=== PATIENT | female | born 1985 | race Caucasian/White ===

== ENCOUNTER → 2019-04-24 | Outpatient (CLI) | payer MEDICARE, MEDICAID, SELFPAY | PROVIDERS: Family Provider Nurse Practitioner Family; PCP Nurse Practitioner Family; Visit Provider Audiologist | DX: H90.11 Conductive hearing loss, unilateral, right ear, with unrestricted hearing on the contralateral side (principal) | CPT/HCPCS: 92557; 92567 ==

== ENCOUNTER → 2019-05-20 11:38 | Outpatient (BNVA) | payer MEDICARE, MEDICAID, SELFPAY | PROVIDERS: Family Provider Nurse Practitioner Family; PCP Nurse Practitioner Family; Visit Provider Nurse Practitioner Family | DX: N18.9 Chronic kidney disease, unspecified (principal) | CPT/HCPCS: 80069; 82044; 85025 ==

== ENCOUNTER → 2019-06-16 12:37 | Outpatient (BNVA) | payer MEDICARE, MEDICAID, SELFPAY | PROVIDERS: Family Provider Nurse Practitioner Family; PCP Nurse Practitioner Family; Referring Provider Nurse Practitioner Family; Visit Provider Otolaryngology | DX: H93.91 Unspecified disorder of right ear (principal); H90.11 Conductive hearing loss, unilateral, right ear, with unrestricted hearing on the contralateral side | CPT/HCPCS: 99213; 99214 ==

== ENCOUNTER → 2019-08-25 11:30 | Outpatient (BNVA) | payer MEDICARE, MEDICAID, SELFPAY | PROVIDERS: Family Provider Nurse Practitioner Family; PCP Nurse Practitioner Family; Visit Provider Nurse Practitioner Family | DX: D52.9 Folate deficiency anemia, unspecified (principal); N18.9 Chronic kidney disease, unspecified; Z79.899 Other long term (current) drug therapy; E55.9 Vitamin D deficiency, unspecified; E53.8 Deficiency of other specified B group vitamins; E78.2 Mixed hyperlipidemia; R53.83 Other fatigue | CPT/HCPCS: 80053; 80061; 81001; 82306; 82607; 82746; 84443 ==

== ENCOUNTER 2019-10-01 13:41 | Outpatient (CLI) | payer MEDICARE, MEDICAID, SELFPAY ==
--- NOTE | 2019-10-01 14:14 | PFTS_ITS ---
Date of Study:10/01/19 Date of Dictation: MECHANICS: Forced vital capacity (FVC) is reduced. Forced expiratory volume in one second (FEV1) is reduced. FEV1/FVC is normal. FLOW VOLUME LOOP: Narrow. LUNG VOLUMES: Not performed DIFFUSING CAPACITY FOR CARBON MONOXIDE: Not performed INTERPRETATION: Spirometry is consistent with mild restriction MTDD
== END 2019-10-01 13:42 | disposition home or self-care (01) ==
LOC: RT 13:42
PROVIDERS: Family Provider Nurse Practitioner Family; PCP Nurse Practitioner Family; Visit Provider Internal Medicine Critical Care Medicine
DX: R05 Cough (principal)
CPT/HCPCS: 94010

== ENCOUNTER → 2019-10-21 11:27 | Outpatient (BNVA) | payer MEDICARE, MEDICAID, SELFPAY | PROVIDERS: Family Provider Nurse Practitioner Family; PCP Nurse Practitioner Family; Visit Provider Nurse Practitioner Family | DX: N18.9 Chronic kidney disease, unspecified (principal); D64.9 Anemia, unspecified | CPT/HCPCS: 80053; 81001; 83540; 85025 ==

== ENCOUNTER → 2019-10-23 10:22 | Outpatient (BNVA) | payer MEDICARE, MEDICAID, SELFPAY | PROVIDERS: Family Provider Nurse Practitioner Family; PCP Nurse Practitioner Family; Visit Provider Nurse Practitioner Family | DX: R73.9 Hyperglycemia, unspecified (principal) | CPT/HCPCS: 83036 ==

== ENCOUNTER 2019-12-15 10:35 | Outpatient (CLI) | payer MEDICARE, MEDICAID, SELFPAY ==
--- NOTE | 2019-12-15 11:00 | USCV_ITS ---
Treasure Ward Age: 34 Gender: F : 1985 Exam Date: 12/15/2019 10:54 Ordering Phys: LISA Borja APRN Technologist: John Suggs Exam Location: [facility] [place] Indication: HISTORY: Edema. Swelling. PROCEDURES: Bilateral duplex Venous Insufficiency study of the Deep and Superficial systems was carried out according to normal protocol with the patient in supine positon for deep system and dependent position for the superficial system. FINDINGS: All deep veins demonstrated compressibility without evidence of intraluminal thrombus or increased echogenicity. Spectral analysis of Doppler signals demonstrates normal response to compression maneuvers indicating patency without obstruction. Reflux determinations were made with the patient in the dependent position, the weight being on the contralateral leg. Vein measurements and reflux times are listed below were applicable. THERE IS SIGNIFICANT REFLUX IN BOTH GSAPH AND LESSER GSAPH BOTH LEG LEG S ARE GOOD CANIDATES FOR ABLATION CONCLUSIONS 1. Significant venous reflux was noted in the common femoral, femoral and popliteal vein on the left side, of greater than 1000 ms. Significant venous reflux of greater than 500 ms were noted throughout the greater saphenous vein segments on the left side including the saphenofemoral junction. The small saphenous vein was found to have significant reflux of greater than 500 ms at the mid segment on the left side. The venous segments were greater than 0.5 cm in diameter and the more than a centimeter deep from the surface 2. On the right side, no significant venous reflux was noted in the deep veins. Significant venous reflux of greater than 500 ms were noted at the distal and below-knee greater saphenous vein segments and in the small saphenous vein segments. The venous dimensions where ranging 0.37 to 0.64 cm in diameter. The segments were greater than 1 cm deep from the surface Dr Alexi French MD [facility] (Electronically Signed) Final Date: 15 December 2019 20:02 S
== END 2019-12-15 10:36 | disposition home or self-care (01) ==
LOC: US 10:36
PROVIDERS: PCP Nurse Practitioner Family; Visit Provider Nurse Practitioner Family
DX: I83.93 Asymptomatic varicose veins of bilateral lower extremities (principal)
CPT/HCPCS: 93970

== ENCOUNTER → 2019-12-22 11:35 | Outpatient (BNVA) | payer MEDICARE, MEDICAID, SELFPAY | PROVIDERS: PCP Nurse Practitioner Family; Visit Provider Nurse Practitioner Family | DX: B88.9 Infestation, unspecified (principal); N18.9 Chronic kidney disease, unspecified | CPT/HCPCS: 80069; 82043; 85025 ==

== ENCOUNTER → 2020-09-01 07:58 | Outpatient (BNVA) | payer MEDICARE, MEDICAID, SELFPAY | PROVIDERS: PCP Nurse Practitioner Family; Visit Provider Dermatology | DX: R21 Rash and other nonspecific skin eruption (principal) | CPT/HCPCS: 87220 ==

== ENCOUNTER 2020-09-01 09:12 | Outpatient (CLI) | payer MEDICARE, MEDICAID, SELFPAY ==
--- NOTE | 2020-09-01 09:29 | XR_ITS ---
WS: [id number] Skull series, 4 views, 09/01/2020 Clinical Data: POST TRAUMATIC SEIZURE DISORDER/INTRACTABLE MIGRAINE Comparison: CT head, 01/10/2017. Findings: The patient has had a left frontal parietal craniotomy. No fractures are seen. There are no abnormal intracranial calcifications. The sella turcica is normal. The mandible and maxilla show no abnormalit ies. The sinuses show no air-fluid levels or mucoperiosteal thickening. XR/XR skull min 4V* [id number] Impression: Left frontoparietal craniotomy.
== END 2020-09-01 09:13 | disposition home or self-care (01) ==
LOC: RAD 09:23
PROVIDERS: PCP Nurse Practitioner Family; Visit Provider Psychiatry & Neurology Neurology
DX: R56.1 Post traumatic seizures (principal); G43.019 Migraine without aura, intractable, without status migrainosus
CPT/HCPCS: 70260

== ENCOUNTER → 2020-09-28 11:14 | Outpatient (BNVA) | payer MEDICARE, MEDICAID, SELFPAY | PROVIDERS: PCP Nurse Practitioner Family; Visit Provider Nurse Practitioner Family | DX: D64.9 Anemia, unspecified (principal); N18.9 Chronic kidney disease, unspecified; E78.2 Mixed hyperlipidemia; E55.9 Vitamin D deficiency, unspecified; I10 Essential (primary) hypertension; Z79.899 Other long term (current) drug therapy; N63.10 Unspecified lump in the right breast, unspecified quadrant | CPT/HCPCS: 80053; 80061; 81003; 82306; 82607; 82728; 83036; 83550; 84443; 85025 ==

== ENCOUNTER → 2020-10-04 15:33 | Outpatient (BNVA) | payer MEDICARE, MEDICAID, SELFPAY | PROVIDERS: PCP Nurse Practitioner Family; Visit Provider Podiatrist Foot & Ankle Surgery | DX: M19.072 Primary osteoarthritis, left ankle and foot (principal); M25.572 Pain in left ankle and joints of left foot | CPT/HCPCS: 73610 ==

== ENCOUNTER 2020-10-14 11:07 | Outpatient (CLI) | payer MEDICARE, MEDICAID, SELFPAY ==
--- NOTE | 2020-10-14 11:14 | US_ITS ---
WS: [id number] BILATERAL DIGITAL DIAGNOSTIC MAMMOGRAM MAMMOGRAPHY WITH CAD CLINICAL INFORMATION: N63.10 - Unspecified lump in the right breast, unspecifie... COMPARISON: None. TECHNIQUE: Bilateral CC, MLO, and ML views. FINDINGS: Fatty replaced breasts bilaterally. Palpable marker right breast. No underlying mammographic abnormal ities. Ultrasound is pending. Bilateral intramammary lymph nodes. No suspicious findings left breast. ULTRASOUND BREAST RIGHT TECHNIQUE: Ultrasound right breast focused area of concern. CLINICAL INFORMATION: N63.10 - Unspecified lump in the right breast, unspecifie... COMPARISON: None. FINDINGS: Ultrasound right breast at the 1:00 position 6 cm from the nipple. Normal underlying parenchymal tiss ue. No cystic or solid lesions. No suspicious findings. US/US breast RT limited* [id number] IMPRESSION: BI-RADS: 2-Benign FOLLOW UP: Age 40 Recommend annual screening mammography age 40
--- NOTE | 2020-10-14 11:30 | MM_ITS ---
WS: [id number] BILATERAL DIGITAL DIAGNOSTIC MAMMOGRAM MAMMOGRAPHY WITH CAD CLINICAL INFORMATION: N63.10 - Unspecified lump in the right breast, unspecifie... COMPARISON: None. TECHNIQUE: Bilateral CC, MLO, and ML views. FINDINGS: Fatty replaced breasts bilaterally. Palpable marker right breast. No underlying mammographic abnormal ities. Ultrasound is pending. Bilateral intramammary lymph nodes. No suspicious findings left breast. ULTRASOUND BREAST RIGHT TECHNIQUE: Ultrasound right breast focused area of concern. CLINICAL INFORMATION: N63.10 - Unspecified lump in the right breast, unspecifie... COMPARISON: None. FINDINGS: Ultrasound right breast at the 1:00 position 6 cm from the nipple. Normal underlying parenchymal tiss ue. No cystic or solid lesions. No suspicious findings. MM/[place] [id number] IMPRESSION: BI-RADS: 2-Benign FOLLOW UP: Age 40 Recommend annual screening mammography age 40
== END 2020-10-14 11:08 | disposition home or self-care (01) ==
LOC: RADSHAW 11:10
PROVIDERS: PCP Nurse Practitioner Family; Visit Provider Nurse Practitioner Family
DX: N63.12 Unspecified lump in the right breast, upper inner quadrant (principal)
CPT/HCPCS: 76642; 77066

== ENCOUNTER 2020-12-27 09:37 | Outpatient (CLI) | payer MEDICARE, MEDICAID, SELFPAY ==
--- NOTE | 2020-12-27 09:48 | CT_ITS ---
WS: [id number] CT TEMPORAL BONES TECHNIQUE: Noncontrast CT of the temporal bones with coronal and sagittal reformatted images. CLINICAL INFORMATION: INFECTIVE OTITIS EXTERNA RT EAR, CONDUCTIVE HEARING LOSS, RT COMPARISON: None. DLP: 660.[address] scans at [facility] use at least one of these dose optimization techniques: automat ed exposure control; mA and/or kV adjustment per patient size (includes targeted exams where dose is matched to clinical indication); or iterative reconstruction. FINDINGS: Mastoid air cells are well aerated bilaterally. External auditory canals are patent bilater ally. Nasal sinuses are well aerated. Mild mucosal thickening ethmoid air cells. Normal parapharyngea l fat. No evidence of drainable abscess or fluid collection. RIGHT: Mastoid air cells are well aerated. Normal external auditory canal. Ossicles are normal in appearance . Small amount of mucosal thickening along the tympanic membrane and hypotympanum. Middle ear is well aerated. Normal tegmen tympani. Semicircular canals and cochlea are normal in appearance. Prussak's space is normal. Normal inner ear structures. Normal vestibular aqueduct. Facial nerve recess is norm al. LEFT: Mastoid air cells are well aerated. Normal external auditory canal. Ossicles are normal in appearance . Middle ear is well aerated. Normal tegmen tympani. Semicircular canals and cochlea are normal in ap pearance. Prussak's space is normal. Normal inner ear structures. Normal vestibular aqueduct. Facial nerve recess is normal. CT/CT temporal bone wo con* [id number] IMPRESSION: 1. Mastoid air cells well aerated bilaterally. Normal external auditory canals . 2. Trace mucosal thickening along the right tympanic membrane and hypotympanum . Right middle ear is well aerated. 3. Left middle ear is well aerated. 4. Ossicles are normal bilaterally. 5. Prior postoperative changes partially visualized left frontotemporal cranio earnestine. 6. Paranasal sinuses are well aerated.
== END 2020-12-27 09:38 | disposition home or self-care (01) ==
PROVIDERS: PCP Nurse Practitioner Family; Visit Provider Specialist
DX: H60.391 Other infective otitis externa, right ear (principal); H90.11 Conductive hearing loss, unilateral, right ear, with unrestricted hearing on the contralateral side; H93.11 Tinnitus, right ear
CPT/HCPCS: 70480

== ENCOUNTER → 2021-02-08 11:12 | Outpatient (BNVA) | payer MEDICARE, MEDICAID, SELFPAY | PROVIDERS: PCP Nurse Practitioner Family; Visit Provider Internal Medicine Nephrology | DX: N18.9 Chronic kidney disease, unspecified (principal) | CPT/HCPCS: 80069; 82043 ==

== ENCOUNTER 2021-07-26 06:00 | Outpatient (RCR) | payer MEDICARE, MEDICAID, SELFPAY | END 2021-08-11 23:59 | disposition home or self-care (01) | LOC: WPT 06:00 | PROVIDERS: PCP Nurse Practitioner Family; Referring Provider Podiatrist Foot & Ankle Surgery; Visit Provider Podiatrist Foot & Ankle Surgery | DX: M79.672 Pain in left foot (principal); M25.372 Other instability, left ankle | CPT/HCPCS: 97110; 97112; 97140; 97161 ==

== ENCOUNTER 2021-08-12 06:00 | Outpatient (RCR) | payer MEDICARE, MEDICAID, SELFPAY | END 2021-08-29 23:59 | disposition home or self-care (01) | LOC: WPT 06:00 | PROVIDERS: PCP Nurse Practitioner Family; Referring Provider Podiatrist Foot & Ankle Surgery; Visit Provider Podiatrist Foot & Ankle Surgery | DX: M79.672 Pain in left foot (principal); M25.372 Other instability, left ankle | CPT/HCPCS: 97110; 97112 ==

== ENCOUNTER 2021-08-30 06:00 | Outpatient (RCR) | payer MEDICARE, MEDICAID, SELFPAY | END 2021-09-10 23:59 | disposition home or self-care (01) | LOC: WPT 06:00 | PROVIDERS: PCP Nurse Practitioner Family; Referring Provider Nurse Practitioner; Visit Provider Nurse Practitioner | DX: M25.511 Pain in right shoulder (principal) | CPT/HCPCS: 97110; 97161 ==

== ENCOUNTER 2021-09-11 | Outpatient (RCR) | payer MEDICARE, MEDICAID, SELFPAY | END 2021-10-11 23:59 | disposition home or self-care (01) | LOC: WPT | PROVIDERS: PCP Nurse Practitioner Family; Referring Provider Nurse Practitioner; Visit Provider Nurse Practitioner | DX: M25.511 Pain in right shoulder (principal) | CPT/HCPCS: 97110; 97140; 97530 ==

== ENCOUNTER → 2021-10-04 11:05 | Outpatient (BNVA) | payer MEDICARE, MEDICAID, SELFPAY | PROVIDERS: PCP Nurse Practitioner Family; Visit Provider Nurse Practitioner | DX: N18.9 Chronic kidney disease, unspecified (principal); E78.2 Mixed hyperlipidemia; E55.9 Vitamin D deficiency, unspecified; I10 Essential (primary) hypertension; Z79.899 Other long term (current) drug therapy | CPT/HCPCS: 80053; 80061; 82306; 83036; 84443; 85025 ==

== ENCOUNTER → 2021-10-26 13:14 | Outpatient (BNVA) | payer MEDICARE, MEDICAID, SELFPAY | PROVIDERS: PCP Nurse Practitioner Family; Visit Provider Podiatrist Foot & Ankle Surgery | DX: M25.572 Pain in left ankle and joints of left foot (principal); G89.29 Other chronic pain; M25.372 Other instability, left ankle; M72.2 Plantar fascial fibromatosis | CPT/HCPCS: 99213; 99214 ==

== ENCOUNTER → 2021-10-31 15:28 | Outpatient (BNVA) | payer MEDICARE, MEDICAID, SELFPAY | PROVIDERS: PCP Nurse Practitioner Family; Visit Provider Nurse Practitioner | DX: M79.641 Pain in right hand (principal) | CPT/HCPCS: 73130 ==

== ENCOUNTER → 2022-01-17 11:55 | Outpatient (BNVA) | payer MEDICARE, MEDICAID, SELFPAY | PROVIDERS: PCP Nurse Practitioner; Visit Provider Nurse Practitioner | DX: I10 Essential (primary) hypertension (principal); Z79.899 Other long term (current) drug therapy; D64.9 Anemia, unspecified | CPT/HCPCS: 80053; 83036; 85025 ==

== ENCOUNTER → 2022-03-06 08:13 | Outpatient (BNVA) | payer MEDICARE, MEDICAID, SELFPAY | PROVIDERS: PCP Nurse Practitioner; Visit Provider Podiatrist Foot & Ankle Surgery | DX: M72.2 Plantar fascial fibromatosis (principal); M25.372 Other instability, left ankle | CPT/HCPCS: 99213 ==

== ENCOUNTER → 2022-04-26 10:24 | Outpatient (BNVA) | payer MEDICARE, MEDICAID, SELFPAY | PROVIDERS: PCP Nurse Practitioner; Visit Provider Podiatrist Foot & Ankle Surgery | DX: M25.372 Other instability, left ankle (principal); M72.2 Plantar fascial fibromatosis | CPT/HCPCS: 99213 ==

== ENCOUNTER → 2022-06-06 08:18 | Outpatient (BNVA) | payer MEDICARE, MEDICAID, SELFPAY | PROVIDERS: PCP Nurse Practitioner; Visit Provider Podiatrist Foot & Ankle Surgery | DX: M25.372 Other instability, left ankle (principal); M72.2 Plantar fascial fibromatosis | CPT/HCPCS: 99213 ==

== ENCOUNTER → 2022-06-21 10:51 | Outpatient (BNVA) | payer MEDICARE, MEDICAID, SELFPAY | PROVIDERS: PCP Nurse Practitioner; Visit Provider Nurse Practitioner | DX: R19.7 Diarrhea, unspecified (principal); K52.9 Noninfective gastroenteritis and colitis, unspecified | CPT/HCPCS: 87400; 87426 ==

== ENCOUNTER → 2022-07-11 14:48 | Outpatient (BNVA) | payer MEDICARE, MEDICAID, SELFPAY | PROVIDERS: PCP Nurse Practitioner; Visit Provider Family Medicine | DX: M25.531 Pain in right wrist (principal); M25.521 Pain in right elbow; M79.641 Pain in right hand | CPT/HCPCS: 73070; 73110; 73130 ==

== ENCOUNTER → 2022-07-14 13:20 | Outpatient (BNVA) | payer MEDICARE, MEDICAID, SELFPAY | PROVIDERS: PCP Nurse Practitioner; Referring Provider Family Medicine; Visit Provider Student in an Organized Health Care Education/Training Program | DX: S52.551A Other extraarticular fracture of lower end of right radius, initial encounter for closed fracture (principal); W18.39XA Other fall on same level, initial encounter | CPT/HCPCS: 73110; 99204; A4590 ==

== ENCOUNTER 2022-07-18 05:52 | Day surgery (SDC) | payer MEDICARE, MEDICAID, SELFPAY ==
[2022-07-17 14:43] VITALS: BMI 61.1
[2022-07-18] VITALS (7 sets, daily range): BP systolic 106–155; BP diastolic 64–88; PULSE 88–101; RESP 16–18; TEMP 36.3–37.1; O2SAT 92–100
--- NOTE | 2022-07-18 | XR_ITS ---
WS: [id number] Right wrist, C-arm fluoroscopy views, 07/18/2022 Clinical Data: AARON PICS Comparison: Right wrist, 07/14/2022 Findings: Dr. Wang performed an internal fixation of the distal right radial fracture. XR/XR wrist RT 2V [id number] Impression: Internal fixation of distal right radial fracture.
--- NOTE | 2022-07-18 06:36 | P.ANESASSM_ITS ---
Pre-Anesthetic Assessment Height/Weight: Height 1.6 m Weight 156.489 kg Temp Pulse Resp BP Pulse Ox O2 Del Method 98.7 F 88 16 155/88 97 07/18/22 06:25 07/18/22 06:25 07/18/22 06:25 07/18/22 06:25 07/18/22 06:25 07/18/22 06:25 Preop Diagnosis: Right distal radius open reduction internal fixation Operation Date: 07/18/22 07:00 Proposed Procedures p RIGHT OPEN REDUCTION INTERNAL FIXATION DISTAL RADIUS FRACTURE 68468,S52.509A(Right) - Umair Wang, Familial anesthetic complications: None Was Beta Aiden taken within 24 hours: N/A Was Clonidine taken within 24 hours: N/A Last intake: Intake Last Liquid Date 07/17/22 Last Liquid Time 18:00 Last Solid Date 07/17/22 Last Solid Time 17:30 Social No alcohol and No tobacco Exam alert, oriented x 3, clear to auscultation bilaterally and regular rate & rhythm Airway Mallampati: Class III Dentition: full Comments: Comments: Hx Tracheostomy, No intubations have occurred since tracheostomy was taken down CV/HEM Hypertension Hx DVT Chronic Renal Insufficiency GI Gastroesophageal Reflux Disease Metabolic Morbid Obesity Anesthetic Plan ASA status: 3 Anesthesia: General and Regional (specify below) Risk of > 500 ml blood loss (7ml/kg in children): No Medications/Allergies Home Medications Medication Instructions Recorded Confirmed Last Taken Type acetaminophen 325 mg tablet 325 mg PO QID PRN Pain 06/16/19 07/17/22 07/17/22 History (Tylenol) gabapentin 100 mg capsule 100 mg PO BID 06/16/19 07/17/22 07/18/22 History oxcarbazepine 600 mg tablet 1,200 mg PO BID 06/16/19 07/17/22 07/18/22 History (Trileptal) sumatriptan succinate 50 mg tablet 50 mg PO Q2H PRN Headache 06/16/19 07/18/22 07/17/22 History (Imitrex) paroxetine HCl 10 mg tablet (Paxil) 10 mg PO DAILY PRN Anxiety 06/15/20 07/17/22 07/17/22 History mupirocin 2 % topical ointment 1 applic topical TID 14 days #22 11/16/20 07/17/22 Unknown Rx grams pantoprazole 40 mg tablet,delayed 40 mg PO DAILY 30 days #30 tabs 04/05/21 07/17/22 07/17/22 Rx release (Protonix) nebulizer accessories #1 ea 08/17/21 07/14/22 Unknown Rx nystatin 100,000 unit/gram topical 1 applic topical BID #30 grams 09/22/21 07/17/22 Unknown Rx cream diclofenac sodium 1 % topical gel 2 g topical BID 5 days #100 grams 12/26/21 07/17/22 Unknown Rx (Voltaren Arthritis Pain) triamcinolone acetonide 0.1 % 1 applic topical BID 5 days #30 12/26/21 07/17/22 07/17/22 Rx topical cream grams afo custom brace and shoes #2 ea 02/08/22 07/14/22 Unknown Rx shoes #2 ea 02/08/22 07/14/22 Unknown Rx left ankle brace #1 ea 02/16/22 07/14/22 Unknown Rx cholecalciferol (vitamin D3) 1,250 50,000 unit PO .weekly #12 tabs 03/01/22 07/17/22 07/18/22 Rx mcg (50,000 unit) tablet bumetanide 2 mg tablet 2 mg PO DAILY #90 tabs 03/23/22 07/17/22 Unknown Rx azelastine 137 mcg (0.1 %) nasal 2 spray intranasal BID #30 mL 03/27/22 07/17/22 Unknown Rx spray aerosol promethazine-DM 6.25 mg-15 mg/5 mL 5 ml PO TID PRN cough #200 mL 03/27/22 07/17/22 Unknown Rx oral syrup lactulose 10 gram/15 mL oral 10 g (15 mL) PO DAILY PRN 04/05/22 07/17/22 Unknown Rx solution constipation #473 mL hydroxyzine HCl 10 mg tablet 10 mg PO Q8H PRN anxiety 30 days 04/28/22 07/17/22 Unknown Rx #90 tabs medroxyprogesterone 150 mg/mL 150 mg IM ONCE PRN family planning 05/30/22 07/17/22 07/05/22 Rx intramuscular syringe #1 mL (Depo-Provera) prednisone 20 mg tablet 30 mg PO DAILY 6 days #9 tabs 06/09/22 07/17/22 07/17/22 Rx loperamide 2 mg capsule 2 mg PO Q6H PRN loose stool #20 06/21/22 07/17/22 Unknown Rx caps albuterol sulfate 0.63 mg/3 mL 0.63 mg inhalation PRN 07/17/22 07/17/22 Unknown History solution for nebulization albuterol sulfate 90 mcg/actuation 2 inh inhalation QID 07/17/22 07/17/22 Unknown History aerosol inhaler (Ventolin HFA) cetirizine 10 mg tablet 10 mg PO DAILY 07/17/22 07/18/22 07/18/22 History fluticasone furoate 100 1 inh inhalation DAILY 07/17/22 07/17/22 07/18/22 History mcg-vilanterol 25 mcg/dose inhalation powder (Breo Ellipta) folic acid 1 mg tablet 1 mg PO BID 07/17/22 07/17/22 07/18/22 History lisinopril 2.5 mg tablet 2.5 mg PO DAILY 07/17/22 07/17/22 07/17/22 History montelukast 10 mg tablet 10 mg PO DAILY 07/17/22 07/18/22 07/17/22 History rivaroxaban 20 mg tablet (Xarelto) 20 mg PO DAILY 07/17/22 07/17/22 07/14/22 History simvastatin 20 mg tablet 20 mg PO DAILY 07/17/22 07/17/22 07/17/22 History Allergies Allergy/AdvReac Type Severity Reaction Status Date / Time clindamycin Allergy ALGY-Rash Verified 07/14/22 13:33 ibuprofen Allergy contraindicated Verified 07/14/22 13:33 with her seizure medication [facility] Anesthesia Medical History Abnormal ear exam Adult BMI 50.0-59.9 kg/sq m Anemia Anxiety Back pain Breast mass, right Cellulitis Cellulitis of scalp Chronic migraine Chronic venous insufficiency Conductive hearing loss in right ear Depression Dermatitis Dog bite of right thigh DVT (deep venous thrombosis) Edema Epilepsy Hemoglobin A1c less than 7.0% History of traumatic brain injury Influenza vaccine needed Injury of left lower leg Medication management Mite infestation Mixed hyperlipidemia Otitis externa, left Otitis media Otitis media, right Rib pain on left side Scalp mass Strain of right knee Venous reflux Viral URI Vitamin D deficiency Surgical History H/O craniotomy History of cholecystectomy Hx of chest tube placement Hx of tracheostomy Family History Father Heart disease Diabetes Hyperlipidemia Prinzmetal angina Family/Other Heart disease Diabetes Hyperlipidemia Mother Diabetes Lung disease COPD & Asthma Hyperlipidemia Social History Smoking and tobacco status: never smoked Alcohol intake: never Current occupational status: disabled Current gender identity: Female Data Anesthesia Cardiac Studies: No Data to Display
[2022-07-18] MEDS: acetaminophen 1,000 MG/100 ML PIGGYBACK 400 MG IV (06:47)
[2022-07-18] MEDS: sodium chloride 0.9% 1,000 ML 30 ML IV (06:47)
[2022-07-18 06:53] LABS: OR HCG Qualitative Urine Negative (Negative)
[2022-07-18 06:58] LABS: Anion Gap 17.3 (5-19); Blood Urea Nitrogen 10 mg/dL (6-20); Calcium 9.1 mg/dL (8.5-10.5); Carbon Dioxide 22 mmol/L (22-29); Chloride 105 mmol/L (98-107); Glomerular Filtration Rate 80.7 mL/min (90-130); Glucose 106 mg/dL (65-115); Osmolality Calculated 289 mOsm/kg (285-295); Potassium 4.3 mmol/L (3.5-5.1); Sodium 140 mmol/L (136-145)
--- NOTE | 2022-07-18 07:06 | ANES.PROC ---
Anesthesia Procedures Procedure/Date: 07/18/22 Nerve Block ^: Nerve Block 1: Main Anesthesia: general anesthesia Time Out Performed: Yes Consent: requested by attending/covering physician, from patient, risks and benefits reviewed and patient agrees to proceed Nerve block location: axillary (R) Anesthesia monitors applied: pulse oximetry, EKG, BP cuff and oxygen Nerve block position: supine Anesthetic Used: ropivicaine 0.5% (30 ml) and with decadron (4 mg) Ultrasound used to: recognize landmarks and visualize and ID brachial plexus Nerve Stimulator Used?: No Interscalene/Femoral BLK: 2 stimuplex 22 g needle used for position and inplane approach, visualize local anesthetic spread and no vascular puncture identified Injection: neg aspiration of heme Complications: none
--- NOTE | 2022-07-18 07:07 | W.PM.OPSUD ---
Surgery/Procedure H&P Update DATE OF PROCEDURE: July 18, 2022 DATE H&P PERFORMED: 07/14/22 CHANGES TO PREVIOUS DOCUMENTATION: none PREOP DIAGNOSIS: Right distal radius fracture displaced angulated PRIMARY INDICATION FOR PROCEDURE: Right distal radius fracture displaced angulated PLANNED PROCEDURE: Operation Date: 07/18/22 07:00 Proposed Procedures p RIGHT OPEN REDUCTION INTERNAL FIXATION DISTAL RADIUS FRACTURE 93195,S52.509A(Right) - Umair Wang DO
[2022-07-18] MEDS: ceFAZolin 3,000 MG in sodium chloride 0.9% (100 ml) 100 ML 200 MG IV (07:41)
--- NOTE | 2022-07-18 08:53 | PM.OP2 ---
Brief Operative Note Date of procedure: 07/18/22 Pre-op diagnosis: Right distal radius fracture extra-articular Post-op diagnosis: same Procedure Done: Right distal radius open reduction internal fixation extra-articular Surgeon: Umair Wang Estimated blood loss (mL): 8 Complications: None Post-op Plan: Patient taken to PACU in stable condition recovering well. Receive appropriate discharge instruction as well as pain medication postoperatively. We will follow-up with me in the office in 2 weeks. Nonweightbearing right upper extremity elevation and ice as needed Contact the office for any questions or concerns Condition: stable Disposition: same day Coding Level of Care Code Acute Code for Elvie Hicks
--- NOTE | 2022-07-18 08:54 | PM.PACU ---
PACU note Narrative: Patient taken to PACU in stable condition recovering well. Regional anesthesia still in effect. Unable to assess motor or sensory. Hand warm well-perfused brisk capillary refill less than 2 seconds. Splint on in place clean dry and intact. Exam: awake Disposition: discharged
--- NOTE | 2022-07-18 08:55 | P.OP_ITS ---
Operative Report Date of procedure: July 18, 2022 Pre-op diagnosis: Preop Diagnosis Right distal radius fracture displaced angulated Post-op diagnosis: Same, extra-articular Procedure done: Right distal radius open reduction internal fixation, extra-articular Implants: Arthrex 3-hole standard volar locking plate Combination of locking and nonlocking screws 2.7 mm distal Combination of locking and nonlocking screws 3.5 mm proximal Surgeon: Umair Wang DO Anesthesia: Nerve Block (Regional) Estimated blood loss: 8 mL 25 minutes IV fluids: 600 mL Complications: None Findings: See operative report narrative Condition: stable Disposition: same day Brief History: Patient is a morbidly obese 37-year-old female who presented to my office for a extra-articular right distal radius fracture. Patient just over 10 degrees of dorsal angulation as well as early signs of compensation with midcarpal flexion. We had a detailed discussion in the office about nonoperative and operative intervention. At this point time I feel through shared decision making her best option would be open reduction internal fixation. Given her body habitus her fracture would be very difficult to control with her soft tissue envelope utilizing closed treatment as well as this would immobilize her for an extended period of time which she would like to have earlier range of motion. Also I feel as though close we would more than likely lose the alignment and continued to have slow distal radius settling and dorsal angulation. As result through shared decision making patient would like to proceed with ORIF right distal radius fracture. Detail the risk benefits complication alternatives to treatment option. Understanding risk for surgery she elects to proceed with surgical intervention. All questions been answered at this time. Procedure: Procedure: Patient seen and evaluated in the preoperative holding area.? Consent reviewed and signed with patient.? Correct extremities were marked and consent was revie wed and signed.? She was seen and evaluated by anesthesia department.? Underwent regional anesthesia. Once cleared for surgery she was taken back to the operative suite.? Patient was then transported into the operative suite transferred furred to an OR table all bony prominences well-padded patient was appropriate secured to bed in supine position.? An armboard was applied to the right upper extremity.? The right upper extremity had a nonsterile tourniquet applied to the right upper arm.? She subsequently was then prepped and draped in standard orthopedic fashion she underwent anesthesia per the anesthesia department.? A final timeout was performed.? Patient received appropriate preoperative antibiotics. Esmarch was used exsanguinate the right upper extremity and tourniquet was insufflated to 300 mmHg. A standard modified FCR volar approach was performed to the right distal radius.? Sharp scalpel incision through skin and subcutaneous tissue.? I then switched to Littler dissection scissors identify the FCR tendon releases out of the sheath both proximally and distally mobilized the tendon ulnarly and then subsequently incised the floor of the FCR tendon sheath with care to just incise the floor.? I then bluntly sweep the FPL tendon muscle belly ulnarly and placed blunt self-retaining retractor.? At this point time I direct visualization of the pronator quadratus which was incised in standard L fashion off the radial and distal border in the distal radius and fracture site was scraped clean of interposed muscle belly.? I then identified the 3 part intra-articular left dis rachel radius fracture.? This was subsequently opened above and freed of interposing muscle belly as well as periosteum and fracture hematoma.? I did have to utilize my [place] which was placed through the fracture pattern and disengage the fracture and performed manual manipulation and anatomic reduction of the extra-articular distal radius fracture.. ?Once this was cleared I then manually performed a reduction maneuver and had appropriate anatomic reduction of the volar cortex.? This was confirmed with mini C arm in multiple orthogonal imaging.? At this point time? I selected a Arthrex anatomic distal radius plate utilizing a standard 3-hole plate which would have appropriate spread distally.? This was then placed up to the distal radius while maintaining my reduction pins were placed distally and proximally to confirm appropriate placement of the plate along the distal radius.? Minor adjustments were made and once I was satisfied I then subsequently drilled a bicortical 3.5 screw proximally in the oblong hole to allow for appropriate sliding of the distal radius plate appropriately to perfect position on the distal radius.? This had excellent fixation and purchase and brought the plate to bone.? While maintaining my reduction I then confirmed in multiple orthogonal imaging that my plate was in appropriate position.? Once satisfied with my position I then subsequently placed the peek targeting guide on the distal locking screws with Arthrex.? The locking guide was then subsequently loaded and I subsequently drilled and placed a fully threaded cortical screw to compress the plate to bone for the distal fracture fragment.? This was performed with plan to then remove this and placed a shorter locking screw had bicortical fixation with excellent purchase and appropriate reduction of my volar tilt and bringing plate to bone of the distal fragment and plate.? Once I was satisfied with my plate position as well as reduction of the distal radius which was confirmed on AP oblique and lateral imaging I then subsequently drilled measured and placed 4 locking screws around this cortical screw.? Then I subsequently removed the cortical screw and placed a shorter locking screw that did not penetrate the dorsal cortex.? This completed my distal fixation.? I then turned my attention and screwed in the locking guides for my final to screws proximally these were then subsequently drilled measured and appropriate length locking screws were then placed proximally with excellent fixation and locking technology into the plate.? This completed my construct.? The peek guide was subsequently removed and final imaging of the left distal radius open reduction internal fixation was taken of AP lateral as well and is orthogonal imaging.? I then took a inclination view which showed my radial styloid screw was out of the penetration of the joint.? All my distal screws were appropriate length did not penetrate dorsal cortex and did not penetrate the joint.? This completed my fix ation.? Wrist was then taken through pronation supination and stressed the DRUJ which was found to be stable.? The wound was then thoroughly irrigated.? Tourniquet was then subsequently deflated.? Hemostasis satisfactory with bipolar electrocautery.? I then subsequently placed interrupted 3-0 Vicryl sutures for subcutaneous tissue and then subsequently placed a Monocryl and Steri-Strips for the skin for closure.? Incision was then dressed with 4 x 4's Kerlix cast padding and a volar Ortho- Glass splint was then applied with Yaniv wrap.? Disposition: Patient taken to PACU in stable condition recovering well receive appropriate discharge instructions as well as pain medication postoperatively. Maintain splint until follow-up. Nonweightbearing right upper extremity We will follow-up with Dr. Goldberg in the office in 2 weeks If any questions or concerns feel free to contact the office.
--- NOTE | 2022-07-18 14:34 | ANE.PACU2 ---
Inpatient post-anesthesia follow up: Airway intact: Yes Vital signs: Temperature 97.3 F Pulse Rate 90 Respiratory Rate 18 Blood Pressure 129/73 Pulse Oximetry 92 Oxygen Delivery Me thod Room Air Oxygen Flow Rate 6 Fraction of Inspir ed Oxygen Hydration adequate: Yes Nausea and vomiting: No Pain level: 1 Mental status: Baseline
== END 2022-07-18 10:22 | disposition home or self-care (01) ==
PROVIDERS: Anesthesiology; PCP Nurse Practitioner; Visit Provider Student in an Organized Health Care Education/Training Program
PROC: (CPT 25607; principal; 2022-07-18 07:00)
DX: S52.551A Other extraarticular fracture of lower end of right radius, initial encounter for closed fracture (principal); I10 Essential (primary) hypertension; E78.2 Mixed hyperlipidemia; K21.9 Gastro-esophageal reflux disease without esophagitis; E66.01 Morbid (severe) obesity due to excess calories; Z68.44 Body mass index [BMI] 60.0-69.9, adult; Z86.718 Personal history of other venous thrombosis and embolism; W18.39XA Other fall on same level, initial encounter; Y92.008 Other place in unspecified non-institutional (private) residence as the place of occurrence of the external cause
CPT/HCPCS: 25607; 36415; 73100; 76000; 80048; 84703; C1713; J0131; J0330; J0690; J1100; J2250; J2405; J2704; J2795; J3010; J7030

== ENCOUNTER → 2022-07-31 13:38 | Outpatient (BNVA) | payer MEDICARE, MEDICAID, SELFPAY | PROVIDERS: PCP Nurse Practitioner; Visit Provider Student in an Organized Health Care Education/Training Program | DX: S52.501A Unspecified fracture of the lower end of right radius, initial encounter for closed fracture (principal); X58.XXXA Exposure to other specified factors, initial encounter; S52.502A Unspecified fracture of the lower end of left radius, initial encounter for closed fracture | CPT/HCPCS: 73110; 99024 ==

== ENCOUNTER 2022-07-31 15:44 | Outpatient (CLI) | payer MEDICARE, MEDICAID, SELFPAY | END 2022-07-31 15:45 | disposition home or self-care (01) | LOC: SPT 15:44 | PROVIDERS: PCP Nurse Practitioner; Visit Provider Student in an Organized Health Care Education/Training Program | DX: Z46.89 Encounter for fitting and adjustment of other specified devices (principal); S52.591D Other fractures of lower end of right radius, subsequent encounter for closed fracture with routine healing; X58.XXXD Exposure to other specified factors, subsequent encounter | CPT/HCPCS: 97760; L3908 ==

== ENCOUNTER 2022-08-01 06:00 | Outpatient (RCR) | payer MEDICARE, MEDICAID, SELFPAY | END 2022-08-11 23:59 | disposition home or self-care (01) | LOC: WPT 06:00 | PROVIDERS: Visit Provider Student in an Organized Health Care Education/Training Program | DX: Z47.89 Encounter for other orthopedic aftercare (principal) | CPT/HCPCS: 97110; 97161; 97530 ==

== ENCOUNTER 2022-08-12 06:00 | Outpatient (RCR) | payer MEDICARE, MEDICAID, SELFPAY | END 2022-09-10 23:59 | disposition home or self-care (01) | LOC: WPT 06:00 | PROVIDERS: Visit Provider Student in an Organized Health Care Education/Training Program | DX: Z47.89 Encounter for other orthopedic aftercare (principal); S52.501D Unspecified fracture of the lower end of right radius, subsequent encounter for closed fracture with routine healing; Z98.890 Other specified postprocedural states; X58.XXXD Exposure to other specified factors, subsequent encounter | CPT/HCPCS: 97110; 97112; 97530 ==

== ENCOUNTER → 2022-08-28 13:19 | Outpatient (BNVA) | payer MEDICARE, MEDICAID, SELFPAY | PROVIDERS: Visit Provider Student in an Organized Health Care Education/Training Program | DX: S52.501A Unspecified fracture of the lower end of right radius, initial encounter for closed fracture (principal); X58.XXXA Exposure to other specified factors, initial encounter | CPT/HCPCS: 73110; 99024 ==

== ENCOUNTER → 2022-09-06 09:02 | Outpatient (BNVA) | payer MEDICARE, MEDICAID, SELFPAY | PROVIDERS: PCP Nurse Practitioner; Visit Provider Podiatrist Foot & Ankle Surgery | DX: M25.373 Other instability, unspecified ankle (principal); M72.2 Plantar fascial fibromatosis | CPT/HCPCS: 99213 ==

== ENCOUNTER 2022-09-11 06:00 | Outpatient (RCR) | payer MEDICARE, MEDICAID, SELFPAY | END 2022-10-11 23:59 | disposition home or self-care (01) | LOC: WPT 06:00 | PROVIDERS: PCP Nurse Practitioner; Visit Provider Student in an Organized Health Care Education/Training Program | DX: Z47.89 Encounter for other orthopedic aftercare (principal) | CPT/HCPCS: 97112; 97530 ==

== ENCOUNTER → 2022-10-26 12:46 | Outpatient (BNVA) | payer MEDICARE, MEDICAID, SELFPAY | PROVIDERS: PCP Nurse Practitioner; Visit Provider Student in an Organized Health Care Education/Training Program | DX: S52.501A Unspecified fracture of the lower end of right radius, initial encounter for closed fracture (principal); X58.XXXA Exposure to other specified factors, initial encounter | CPT/HCPCS: 73110; 99213 ==

== ENCOUNTER → 2022-11-20 13:02 | Outpatient (BNVA) | payer MEDICARE, MEDICAID, SELFPAY | PROVIDERS: PCP Nurse Practitioner; Visit Provider Podiatrist Foot & Ankle Surgery | DX: I73.9 Peripheral vascular disease, unspecified (principal); L60.8 Other nail disorders; L84 Corns and callosities; N18.9 Chronic kidney disease, unspecified; I87.2 Venous insufficiency (chronic) (peripheral); M25.372 Other instability, left ankle | CPT/HCPCS: 11056; 11721 ==

== ENCOUNTER → 2023-02-19 12:59 | Outpatient (BNVA) | payer MEDICARE, MEDICAID, SELFPAY | PROVIDERS: PCP Nurse Practitioner; Visit Provider Podiatrist Foot & Ankle Surgery | DX: L60.8 Other nail disorders (principal); L84 Corns and callosities; I73.9 Peripheral vascular disease, unspecified; N18.9 Chronic kidney disease, unspecified; I87.2 Venous insufficiency (chronic) (peripheral); Z87.820 Personal history of traumatic brain injury | CPT/HCPCS: 11056; 11721 ==

== ENCOUNTER → 2023-03-07 09:55 | Outpatient (BNVA) | payer MEDICARE, MEDICAID, SELFPAY | PROVIDERS: PCP Nurse Practitioner; Visit Provider Nurse Practitioner Family | DX: M25.569 Pain in unspecified knee (principal); Z91.81 History of falling; Z79.899 Other long term (current) drug therapy; I10 Essential (primary) hypertension; E55.9 Vitamin D deficiency, unspecified | CPT/HCPCS: 80053; 80061; 81003; 82306; 83036; 84443; 85025 ==

== ENCOUNTER → 2023-05-23 14:30 | Outpatient (BNVA) | payer MEDICARE, MEDICAID, SELFPAY | PROVIDERS: PCP Nurse Practitioner; Visit Provider Podiatrist Foot & Ankle Surgery | DX: L60.8 Other nail disorders (principal); L84 Corns and callosities; I73.9 Peripheral vascular disease, unspecified; N18.9 Chronic kidney disease, unspecified; I87.2 Venous insufficiency (chronic) (peripheral); Z87.820 Personal history of traumatic brain injury | CPT/HCPCS: 11056; 11721 ==

== ENCOUNTER 2023-06-19 10:48 | Outpatient (CLI) | payer MEDICARE, MEDICAID, SELFPAY ==
[2023-06-19 11:04] VITALS: PULSE 100; RESP 18; O2SAT 98
[2023-06-19] MEDS: albuterol 2.5 mg/3 mL Neb INHALATION (11:04)
[2023-06-19 11:08] VITALS: PULSE 98
== END 2023-06-19 10:49 | disposition home or self-care (01) ==
LOC: RT 10:49
PROVIDERS: PCP Nurse Practitioner Family; Visit Provider Internal Medicine Pulmonary Disease
DX: J45.909 Unspecified asthma, uncomplicated (principal); M25.531 Pain in right wrist; M77.8 Other enthesopathies, not elsewhere classified; F40.240 Claustrophobia
CPT/HCPCS: 73110; 94060; 94729; 99213; J7613

== ENCOUNTER → 2023-07-09 10:19 | Outpatient (BNVA) | payer MEDICARE, MEDICAID, SELFPAY | PROVIDERS: PCP Nurse Practitioner Family; Visit Provider Nurse Practitioner Family | DX: Z30.09 Encounter for other general counseling and advice on contraception (principal) | CPT/HCPCS: 81025 ==

== ENCOUNTER → 2023-07-31 14:17 | Outpatient (BNVA) | payer MEDICARE, MEDICAID, SELFPAY | PROVIDERS: PCP Nurse Practitioner Family; Visit Provider Student in an Organized Health Care Education/Training Program | DX: M25.561 Pain in right knee (principal); M17.11 Unilateral primary osteoarthritis, right knee | CPT/HCPCS: 20610; 73560; 73565; 99213; J3301 ==

== ENCOUNTER → 2023-08-29 13:48 | Outpatient (BNVA) | payer MEDICARE, MEDICAID, SELFPAY | PROVIDERS: PCP Nurse Practitioner Family; Visit Provider Podiatrist Foot & Ankle Surgery | DX: L60.8 Other nail disorders (principal); L84 Corns and callosities; I73.9 Peripheral vascular disease, unspecified; N18.9 Chronic kidney disease, unspecified; I87.2 Venous insufficiency (chronic) (peripheral); Z87.820 Personal history of traumatic brain injury | CPT/HCPCS: 11056; 11721 ==

== ENCOUNTER → 2023-11-06 10:58 | Outpatient (BNVA) | payer MEDICARE, MEDICAID, SELFPAY | PROVIDERS: PCP Nurse Practitioner Family; Visit Provider Physician Assistant | DX: M17.11 Unilateral primary osteoarthritis, right knee (principal) | CPT/HCPCS: 20610; 99213; J3301 ==

== ENCOUNTER → 2023-11-08 14:40 | Outpatient (BNVA) | payer MEDICARE, MEDICAID, SELFPAY | PROVIDERS: PCP Nurse Practitioner Family; Visit Provider Podiatrist Foot & Ankle Surgery | DX: M79.671 Pain in right foot (principal); M72.2 Plantar fascial fibromatosis | CPT/HCPCS: 73630; 99213 ==

== ENCOUNTER → 2023-12-20 14:17 | Outpatient (BNVA) | payer MEDICARE, MEDICAID, SELFPAY | PROVIDERS: PCP Nurse Practitioner Family; Visit Provider Podiatrist Foot & Ankle Surgery | DX: M79.671 Pain in right foot (principal); M72.2 Plantar fascial fibromatosis | CPT/HCPCS: 99213 ==

== ENCOUNTER → 2024-01-30 10:16 | Outpatient (BNVA) | payer MEDICARE, MEDICAID, SELFPAY | PROVIDERS: PCP Nurse Practitioner Family; Visit Provider Podiatrist Foot & Ankle Surgery | DX: M77.9 Enthesopathy, unspecified (principal); M79.671 Pain in right foot; M72.2 Plantar fascial fibromatosis | CPT/HCPCS: 99213 ==

== ENCOUNTER → 2024-03-14 10:02 | Outpatient (BNVA) | payer MEDICARE, MEDICAID, SELFPAY | PROVIDERS: PCP Nurse Practitioner Family; Visit Provider Physician Assistant | DX: M17.11 Unilateral primary osteoarthritis, right knee (principal) | CPT/HCPCS: 20610; 99213; J3301 ==

== ENCOUNTER → 2024-06-20 10:31 | Outpatient (BNVA) | payer MEDICARE, MEDICAID, SELFPAY | PROVIDERS: PCP Nurse Practitioner Family; Visit Provider Physician Assistant | DX: M17.11 Unilateral primary osteoarthritis, right knee (principal) | CPT/HCPCS: 20610; 99213; J3301 ==

== ENCOUNTER → 2024-06-30 10:24 | Outpatient (BNVA) | payer MEDICARE, MEDICAID, SELFPAY | PROVIDERS: PCP Nurse Practitioner Family; Visit Provider Nurse Practitioner Family | DX: I10 Essential (primary) hypertension (principal); E78.2 Mixed hyperlipidemia; E55.9 Vitamin D deficiency, unspecified; R74.8 Abnormal levels of other serum enzymes; D64.9 Anemia, unspecified; Z68.43 Body mass index [BMI] 50.0-59.9, adult; Z79.899 Other long term (current) drug therapy | CPT/HCPCS: 80053; 80061; 81003; 82306; 82607; 82728; 83550; 84443; 85025; 87086 ==

== ENCOUNTER → 2024-08-27 13:04 | Outpatient (BNVA) | payer MEDICARE, MEDICAID, SELFPAY | PROVIDERS: PCP Nurse Practitioner Family; Visit Provider Podiatrist Foot & Ankle Surgery | DX: R73.03 Prediabetes (principal); M77.9 Enthesopathy, unspecified; M72.2 Plantar fascial fibromatosis | CPT/HCPCS: 99213 ==

== ENCOUNTER → 2024-09-16 14:03 | Outpatient (BNVA) | payer MEDICARE, MEDICAID, SELFPAY | PROVIDERS: PCP Nurse Practitioner Family; Visit Provider Nurse Practitioner Family | DX: I10 Essential (primary) hypertension (principal); D64.9 Anemia, unspecified; E78.2 Mixed hyperlipidemia; E55.9 Vitamin D deficiency, unspecified; N18.9 Chronic kidney disease, unspecified; Z68.43 Body mass index [BMI] 50.0-59.9, adult; Z79.899 Other long term (current) drug therapy | CPT/HCPCS: 80053; 80061; 82306; 83036; 84443; 85025 ==

== ENCOUNTER 2025-01-26 10:57 | Emergency (ER) | payer MEDICARE, MEDICAID, SELFPAY ==
[2025-01-26 11:30] VITALS: BP 117/79; PULSE 84; RESP 16; TEMP 36.7; O2SAT 97; BMI 57.4
--- OUTSIDE RECORDS SUMMARY | 2025-01-26 11:31 | XMS_ITS | Encounter Summary ---
Author Organization [facility] Address [address] [place] [address] Care Team Providers Care Vamper Name Role Phone Kendrick Borja KAVON Primary Care Provider [phone] Encounter Details Date Type Department Care Team (Late st Contact Info) Description 05/18/2017 Ancillary Orders [facility] Admitting [address] [place] [phone] Mtnv, External Provider [address] [facility] [address] [place] [address] Acute pain of both knees Social History Tobacco Use Types Packs/Day Years Used Date Smoking Tobacco: Never Assessed Comments Unknown Sex and Gender Information Value Date Recorded Sex Assigned at Not on file Legal Sex Female 7:29 AM CDT Gender Identity Not on file Sexual Orientation Not on file documented as of this encounter Plan of Treatment Not on file documented as of this encounter Results * XR KNEE 3 VW BILAT (05/18/2017 10:42 AM WAGON DRIVER) Anatomical Region Laterality Modality Lower Extremity Computed Radiogr aphy 05/18/2017 10:4 2 AM WAGON DRIVER Impressions 05/18/2017 8:53 PM WAGON DRIVER IMPRESSION: No acute osseous or specific articular abnormality. [id number] Narrative 05/18/2017 8:53 PM WAGON DRIVER Exam: XR KNEE 3 VW BILAT Date/Time of Exam: 05/18/2017 10:42 AM Reason For Exam: Acute pain of both knees, Acute pain of both knees. Comparison: None. Findings: Three views of each knee are submitted. There is no evidence of an acute fracture or dislocation. The joints appear well maintained. The bone density is diminished. There is no apparent joint effusion. Procedure Note Osmani Osei, DO - 05/18/2017 Exam: XR KNEE 3 VW BILAT Date/Time of Exam: 05/18/2017 10:42 AM Reason For Exam: Acute pain of both knees, Acute pain of both knees. Comparison: None. Findings: Three views of each knee are submitted. There is no evidence of an acute fracture or dislocation. The joints appear well maintained. The bone density is diminished. There is no apparent joint effusion. IMPRESSION: No acute osseous or specific articular abnormality. [id number] us External Provider Mtnv DIAGNOSTIC IMAGING ORDERA BLES Final Result documented in this encounter Visit Diagnoses Diagnosis Acute pain of both knees Acute pain of both knees documented in this encounter Additional Health Concerns Infection Onset Date Last Indicated Resolved Time R/O COVID-19 01/24/2020 01/24/2020 01/25/2020 11:5 3 AM CDT COVID-19 01/24/2020 01/24/2020 02/23/2020 8:09 PM CDT documented as of this encounter Care Teams Vamper Relationship Specialty Start Date End Date Kendrick Borja APRN [address] [place] [phone] PCP - General NURSE PRACTITIONER 05/02/18 documented as of this encounter
--- OUTSIDE RECORDS SUMMARY | 2025-01-26 11:32 | XMS_ITS | Encounter Summary ---
Author Organization [facility] Address [address] [place] [address] Care Team Providers Care Poem Writer Name Role Phone Kendrick Borja APRN Primary Care Provider [phone] Reason for Referral * Radiology Services (Routine) - Closed Specialty Diagnoses / Procedures Referred By Contac t Referred To Contact Radiology Diagnoses Localized swelling, mass, and lump of head Procedures US HEAD NECK TISSUES Kendrick Borja APRN [address] [place] [phone] Phone: tel: fax: [facility] [address] [place] [address] Phone: tel: fax: Referral ID Status Reason Start Date Expiration Date V isits Requested Visits Authorized [id number] Closed [facility] View CTS to Schedule 08/17/2020 09/17/2021 1 1 Encounter Details Date Type Department Care Team (Latest Contact Info) Description 08/17/2020 Ancillary Orders [facility] Centralized Scheduling [address] [facility] [address] [place] [address] Kendrick Borja APRN [address] [place] [phone] Localized swelling, mass, and lump of head Social History Tobacco Use Types Packs/Day Years Used Date Smoking Tobacco: Never Smokeless Tobacco: Never Alcohol Use Standard Drinks/Week Comments No 0 (1 standard drink = 0.6 oz pur e alcohol) Comments No Sex and Gender Information Value Date Recorded Sex Assigned at Not on file Legal Sex Female 7:29 AM CDT Gender Identity Not on file Sexual Orientation Not on file COVID-19 Exposure Response Date Recorded In the last month, have you been in contact with someone who was confirmed or suspected to have Coronavirus / COVID-19? Yes 08/07/2020 11:42 AM CDT documented as of this encounter Plan of Treatment Not on file documented as of this encounter Results * US HEAD NECK TISSUES (09/13/2020 11:41 AM CDT) Anatomical Region Laterality Modality Head Ultrasound 09/13/2020 11:4 1 AM CDT Impressions 09/13/2020 3:32 PM CDT IMPRESSION: Normal size left postauricular lymph nodes. Narrative 09/13/2020 3:32 PM CDT Exam: US HEAD NECK TISSUES Date/Time of Exam: 09/13/2020 11:41 AM Reason For Exam: See Diagnosis. Diagnosis: Localized swelling, mass, and lump of head. Findings: Multiplanar grayscale imaging was performed of the left posterior reticular region. There are small lymph nodes noted measuring 6 and 3 mm. These maintain a normal reynaldo architecture. No concerning mass or fluid collection. Procedure Note Obed Hines MD - 09/13/2020 Exam: US HEAD NECK TISSUES Date/Time of Exam: 09/13/2020 11:41 AM Reason For Exam: See Diagnosis. Diagnosis: Localized swelling, mass, and lump of head. Findings: Multiplanar grayscale imaging was performed of the left posterior reticular region. There are small lymph nodes noted measuring 6 and 3 mm. These maintain a normal reynaldo architecture. No concerning mass or fluid collection. IMPRESSION: Normal size left postauricular lymph nodes. us Dj Gross SIX PACK PACKER US ORDERABLES Final Result documented in this encounter Visit Diagnoses Diagnosis Localized swelling, mass, and lump of head Swelling, mass, or lump in head and neck Localized swelling, mass, and lump of head Swelling, mass, or lump in head and neck documented in this encounter Care Teams Poem Writer Relationship Specialty Start Date End Date Kendrick Borja, SIX PACK PACKER [facility] [phone] PCP - General NURSE PRACTITIONER 05/02/18 documented as of this encounter
--- OUTSIDE RECORDS SUMMARY | 2025-01-26 11:32 | XMS_ITS | Clinical Summary ---
Author Organization [facility] Marisol Co unty Address [address] [place] [address] Phone Care Team Providers Care Supervisor Contact Lens Name Role Phone Jonh Kendrick JACOBSON Primary Care Provider [phone] Allergies Active Allergy Reactions Criticality Noted Date Comments Clindamycin Hcl Hives High 05/22/2017 Medications montelukast (SINGULAIR) 10 mg tablet Take 10 mg by mouth daily at bedtime. 0 Active fluticasone furoate-vilante roL (Breo Ellipta) 100-25 mcg/dose Disk with Device INHALE 1 PUFF BY MOUTH ONCE DAILY 0 Active folic acid (FOLVITE) 1 mg tablet Take 2 mg by mouth. 0 Active rivaroxaban (XARELTO) 20 mg Tablet Take 1 Tablet (20 mg) by mouth daily with supper. 30 Tablet 0 0 Active Cholecalciferol , Vitamin D3, 75 mcg (3,000 unit) Tablet Take by mouth. Ac tive furosemide (LASIX) 20 mg tablet Take 20 mg by mouth daily. Active cetirizine (ZyrTEC) 10 mg tablet Take 10 mg by mouth daily. Active lisinopriL (PRINIVIL) 2.5 mg tablet Take 2.5 mg by mouth daily. Active leuprolide acetate (LUPRON DEPOT) 22.5 mg 3 month IM syringe Inject 22.5 mg by intramuscular injection every 90 days. Active mv-min/vit C/glut/lysine/h b124 (AIR PROTECTOR ORAL) Take by mouth. Active simvastatin (ZOCOR) 20 mg tablet Take 20 mg by mouth daily with supper. Active albuterol sulfate 90 mcg/Actuation inhaler Take 2 Puffs by inhalation every 6 hours as needed for Shortness of Breath. Active SUMAtriptan (IMITREX) 50 mg tabletIndicatio ns:Intractable migraine without aura and without status migrainosus Take one at onset of migraine. May repeat once in 2 hrs. Max of 2 in a day 27 Tablet 3 4 Active gabapentin (NEURONTIN) 100 mg capsuleIndicati ons:Intractable migraine without aura and without status migrainosus,Pos t traumatic seizure disorder (CMS/HCC) Take 1 Capsule (100 mg) by mouth 2 times daily. 180 Capsule 3 4 Active OXcarbazepine (TrileptaL) 600 mg tabletIndicatio ns:Post traumatic seizure disorder (CMS/HCC) Take 1 Tablet (600 mg) by mouth 2 times daily. 180 Tablet 3 4 Active hydrOXYzine pamoate (VISTARIL) 25 mg capsule Take 25 mg by mouth 3 times daily as needed for Anxiety. Active Active Problems Problem Noted Date Diagnosed Date Pneumonia due to COVID-19 virus 01/28/2020 Acute respiratory distress s yndrome (ARDS) due to severe acute respiratory syndrome coronavirus 2 (SARS-CoV-2) 01/28/2020 Acute hypoxemic respiratory failure 01/28/2020 Community acquired pneumonia of right middle lob e of lung 01/28/2020 Acute respiratory failure with hypoxia 0 Chronic deep vein thrombosis (DVT) of femoral vein of left lower extremity 01/25/2020 Hypokalemia 01/25/2020 Morbid obesity with BMI of 50.0-59.9, adult 01/12 Post traumatic seizure disorder 05/22/2017 Intractable migraine without aura and without status migrainosus 05/22/2017 Resolved Problems Problem Noted Date Diagnosed Date Resolved Date Pneumonia due to infectious organism 01/25/2020 01/26/2020 Suspected COVID-19 virus infection 01/25/2020 01/26/2020 Encounters Date Type Department Care Team Description 01/20/2025 External Device Data STL ABSTRACTION Provider, Abstract 01/13/2025 External Device Data ST[facility] ABSTRACTION Provider, Abstract 01/07/2025 External Device Data [facility] ABSTRACTION Provider, Abstract 01/06/2025 External Device Data [facility] ABSTRACTION Provider, Abstract 12/30/2024 External Device Data [facility] ABSTRACTION Provider, Abstract 12/23/2024 4:00 PM CDT - 12/23/2024 11:59 PM CDT Hospital Encounter [facility] Neurology [facility] [address] [facility] [address] [place] [phone] Chico De Los Santos MD Discharge Disposition: Home or Self Care 12/23/2024 External Device Data ST[facility] ABSTRACTION Provider, Abstract 12/17/2024 External Device Data [facility] ABSTRACTION Provider, Abstract 11/04/2024 External Device Data [facility] ABSTRACTION Provider, Abstract 11/04/2024 External Device Data [facility] ABSTRACTION Provider, Abstract from Last 3 Months Immunizations Immunization Administration Dates Next Due (ADACEL/BOOSTRIX)(10 YR UP) TDAP VACCINE, 0.5ML, IM 02/23/2024,03/14/2021 Social History Tobacco Use Types Packs/Day Years Used Date Smoking Tobacco: Never Smokeless Tobacco: Never Alcohol Use Standard Drinks/Week Comments No 0 (1 standard drink = 0.6 oz pur e alcohol) Feeling Safe Answer Date Recorded Are you in a relationship wi th someone who hurts you emotionally and/or physically? No 02/23/2024 Comments No Sex and Gender Information Value Date Recorded Sex Assigned at Not on file Legal Sex Female 12:04 AM WHEELAGE CLERK Gender Identity Not on file Sexual Orientation Not on file Last Filed Vital Signs Vital Sign Reading Time Taken Comments Blood Pressure 150/90 12/23/2024 4:10 PM CDT Pulse 110 12/23/2024 4:10 PM CDT Temperature 36.1 C (96.9 F) 12/23/2024 4:10 PM CDT Respiratory Rate 22 12/23/2024 4:10 PM CDT Oxygen Saturation 94% 12/23/2024 4:10 PM CDT Inhaled Oxygen Concentration - - Weight 161 kg (355 lb) 12/23/2024 4:10 PM CDT Height 162.6 cm (5' 4 ) 12/23/2024 4:10 PM CDT Body Mass Index 60.94 12/23/2024 4:10 PM CDT Plan of Treatment Upcoming Encounters Date Type Department Care Team (Late st Contact Info) Description 07/09/2025 4:00 PM WHEELAGE CLERK Appointment [facility] Neurology [facility] [address] [place] [address] Chico De Los Santos MD [address] [place] [phone] Health Maintenance Due Date Last Done Comments Pre-Diabetes and Diabetes Screening 1985 HEPATITIS B VACCINES (1 of 3 - 19+ 3-dose series) 01/16/2004 HPV/Cotest (21-29) 2006 HPV VACCINES (1 - 3-dose SCD M series) 01/16/2012 HPV/Cotest (30-65) 2015 CERVICAL CANCER SCREENING 11/27/2021 PAP SMEAR 11/27/2021 11/27/2018 INFLUENZA VACCINE (#1) 2024 BREAST CANCER SCREENING 2025 DTAP/TDAP/TD VACCINES (3 - T d or Tdap) 02/22/2034 02/23/2024, 03/14/2021 COVID-19 Vaccine Completed 02/18/2024, , 05/12/2021, Additional history exists Insurance [place] Member Subscriber Plan / Payer (Ef fective 2020-Present) Name:Treasure Ward Relation to Subscriber:Self Name:Treasure Ward Payer ID:Not on file Group ID:Not on file Type:Medicaid Address: [address] DUAL ADVANTAGE O NP Care Teams Supervisor Contact Lens Relationship Specialty Start Date End Date Kendrick Borja, STEAM TRAP WORKER [address] [phone] PCP - General 08/07/20
--- OUTSIDE RECORDS SUMMARY | 2025-01-26 11:32 | XMS_ITS | Encounter Summary ---
Author Organization [facility] Address [address] [place] [address] Care Team Providers Care Brush Clearing Laborer Name Role Phone Kendrick Borja APRN Primary Care Provider [phone] Encounter Details Date Type Department Care Team (Late st Contact Info) Description 10/07/2019 Ancillary Orders [facility] Centralized Scheduling [address] [place] [address] Kendrick Borja APRN [address] [place] [phone] Social History Tobacco Use Types Packs/Day Years Used Date Smoking Tobacco: Never Smokeless Tobacco: Never Alcohol Use Standard Drinks/Week Comments No 0 (1 standard drink = 0.6 oz pur e alcohol) Comments Unknown Sex and Gender Information Value Date Recorded Sex Assigned at Not on file Legal Sex Female 7:29 AM CDT Gender Identity Not on file Sexual Orientation Not on file documented as of this encounter Plan of Treatment Not on file documented as of this encounter Visit Diagnoses Not on filedocumented in this encounter Additional Health Concerns Infection Onset Date Last Indicated Resolved Time R/O COVID-19 01/24/2020 01/24/2020 01/25/2020 11:5 3 AM CDT COVID-19 01/24/2020 01/24/2020 02/23/2020 8:09 PM CDT documented as of this encounter Care Teams Brush Clearing Laborer Relationship Specialty Start Date End Date Kendrick Borja APRN [address] [place] [phone] PCP - General NURSE PRACTITIONER 05/02/18 documented as of this encounter
--- OUTSIDE RECORDS SUMMARY | 2025-01-26 11:32 | XMS_ITS | Encounter Summary ---
Author Organization [facility] Address [address] [place] [address] Care Team Providers Care Geographic Information System Surveyor Name Role Phone Kendrick Borja APRN Primary Care Provider [phone] Encounter Details Date Type Department Care Team (Late Contact Info) Description 01/20/2025 External Device Data ST[facility] ABSTRACTION Provider, Abstract NO ADDRESS ON FILE Social History Tobacco Use Types Packs/Day Years [...] on file Legal Sex Female 12:04 AM PROJECT TECHNICIAN Gender Identity Not on file Sexual Orientation Not on file documented as of this encounter Plan of Treatment Upcoming Encounters Date Type Department Care Team (Late Contact Info) Description 07/09/2025 4:00 PM PROJECT TECHNICIAN Appointment [facility] Neurology [facility] [address] [place] [phone] Chico De Los Santos MD [address] [place] [phone] documented as of this encounter Visit Diagnoses Not on filedocumented in this encounter Care Teams Geographic Information System Surveyor Relationship Specialty Start Date End Date Kendrick Borja, KAVON [address] [phone] PCP - General 08/07/20 documented as of this encounter
--- OUTSIDE RECORDS SUMMARY | 2025-01-26 11:32 | XMS_ITS | Clinical Summary ---
Author Organization [facility] Address [address] [place] [address] Phone Care Team Providers Care Bladder Cleaner Name Role Phone Jonh Kendrick ADDISON Primary Care Provider [phone] Allergies Active Allergy Reactions Criticality Noted Date Comments Clindamycin Hives High 05/22/2017 Medications * This document contains information received from the source organization and may not represent a complete record from that organization. SUMAtriptan (IMITREX) 50 MG tablet Take 50 mg by mouth 9 Active rivaroxaban (XARELTO) 20 MG tablet Take 20 mg by mouth daily Active OXcarbazepine (TRILEPTAL) 600 MG tablet Take 600 mg by mouth twice a day 0 Active gabapentin (NEURONTIN) 100 MG capsule Take 100 mg by mouth twice a day 9 Active folic acid (FOLVITE) 1 MG tablet Take 2 mg by mouth daily Active medroxyPROGESTE Babatunde Acetate (DEPO-PROVERA IM) Inject into the shoulder, thigh, or buttocks Active Acetaminophen 325 MG capsule Take 650 mg by mouth every 4 (four) hours if needed Active albuterol HFA (PROVENTIL HFA;VENTOLIN HFA) 108 (90 Base) MCG/ACT inhaler Inhale 2 puffs every 6 (six) hours if needed for wheezing Active albuterol 0.63 MG/3ML nebulizer solution Take 0.63 mg by nebulization every 6 (six) hours if needed for wheezing Active azelastine (ASTELIN) 0.1 % nasal spray Administer 1 spray into each nostril 2 (two) times a day Use in each nostril as directed Active cetirizine (ZyrTEC) 10 MG tablet Take 10 mg by mouth 1 (one) time each day Active CHOLECALCIFEROL PO Take 1,000 Units by mouth 1 (one) time each day Active eletriptan (RELPAX) 40 MG tablet Take 40 mg by mouth 1 (one) time if needed for migraine May repeat in 2 hours if unresolved. Do not exceed 80 mg in 24 hours. Active Fluticasone Furoate-Vilante rol (Breo Ellipta) 100-25 MCG/INH aerosol powder Inhale 1 puff 2 (two) times a day Active montelukast (SINGULAIR) 10 MG tablet Take 10 mg by mouth every night Active simvastatin (ZOCOR) 20 MG tablet Take 20 mg by mouth every night Active venlafaxine XR (EFFEXOR-XR) 150 MG 24 hr capsule Take 150 mg by mouth 1 (one) time each day Do not crush or chew. Active triamcinolone (KENALOG) 0.1 % ointment USE 1 TOPICAL APPLICATION TWICE DAILY; APPLY THIN FILM TO ITCHY AREAS ON ARMS/TRUNK TWICE DAILY FOR NO MORE THAN 3 WEEKS/MONTH 1 Active lisinopril 2.5 MG tablet Take 2.5 mg by mouth 1 (one) time each day 1 Active furosemide (LASIX) 20 MG tablet Take 20 mg by mouth 1 (one) time each day 1 Active fluticasone (FLONASE) 50 MCG/ACT nasal spray Administer 1 spray into each nostril 1 (one) time each day 1 Active Active Problems Problem Noted Date Diagnosed Date Stage 3a chronic kidney disease 12/17/2019 Family History Medical History Relation Comments Diabetes Father Heart disease Father Hypertension Father Diabetes Mother Relation Status Comments Father Mother Social History Tobacco Use Types Packs/Day Years Used Date Smoking Tobacco: Never Smokeless Tobacco: Never Alcohol Use Standard Drinks/Week Comments Never 0 (1 standard drink = 0.6 oz pur e alcohol) AUDIT-C Answer Date Recorded Q1: How often do you have a drink containing alc ohol? Never 12/10/2019 Average Number of Drinks Not on file 020 Frequency of Binge Drinking Not on file 11/12 Comments Unknown Sex and Gender Information Value Date Recorded Sex Assigned at Not on file Legal Sex Female 10:44 AM EDT Gender Identity Not on file Sexual Orientation Not on file Last Filed Vital Signs Vital Sign Reading Time Taken Comments Blood Pressure 124/80 02/09/2021 10:27 AM CDT Pulse 84 02/09/2021 10:27 AM CDT Temperature 37.6 C (99.7 F) 12/17/2019 1:10 PM CDT Respiratory Rate - - Oxygen Saturation - - Inhaled Oxygen Concentration - - Weight 158 kg (348 lb) 02/09/2021 10:27 AM CDT Height 160 cm (5' 3 ) 02/09/2021 10:27 AM CDT Body Mass Index 61.65 02/09/2021 10:27 AM CDT Plan of Treatment Health Maintenance Due Date Last Done Comments Hepatitis B Vaccine (1 of 3 - 19+ 3-dose series) 01/15 Pneumococcal Vaccine: Peds ( 0 to 5 Years) and At-Risk Patients (6 to 49 Years) (1 of 2 - PCV) 01/16/2004 Influenza Vaccine (#1) 2025 Insurance Medicaid [place] ([id number]) [facility] Care Teams Bladder Cleaner Relationship Specialty Start Date End Date Kendrick Borja ARNP PCP - General Nurse Practitioner 02/08/21
--- OUTSIDE RECORDS SUMMARY | 2025-01-26 11:32 | XMS_ITS | Patient Health Record ---
Author Organization [facility] Address [address] [place] [address] Support Name Relationship Address Phone Treasure Ward Guarantor Unknown [phone] Allergies Allergen (clinical drug ingredient) Drug/Non Drug Allergy documented on EMR Reaction Allergy Type Onset Date Status clindamycin Clindamycin , Drug Allergy Act yesenia Reason For Referral No Information Medications Medication SIG (Take, Route, Frequency, Duration) Notes Start Date End Date Status oxcarbazepine 600 MG Oral Tablet oxcarbazepine 600 MG Oral Tablet 09/19/2016 Active Simvastatin 20 MG Oral Tablet Simvastatin 20 MG Oral Tablet 09/19/2016 Active zonisamide 100 MG Oral Capsule zonisamide 100 MG Oral Capsule 09/19/2016 Active Folic Acid 1 MG Oral Tablet Folic Acid 1 MG Oral Tablet 09/19/2016 Active Citalopram 20 MG Oral Tablet Citalopram 20 MG Oral Tablet 09/19/2016 Active 120 ACTUAT Fluticasone propionate 0.22 MG/ACTUAT Metered Dose Inhaler [Flovent] 120 ACTUAT Fluticasone propionate 0.22 MG/ACTUAT Metered Dose Inhaler [Flovent] 09/19/2016 Active Sumatriptan 50 MG Oral Tablet Sumatriptan 50 MG Oral Tablet 09/19/2016 Active Loratadine 10 MG Oral Capsule Loratadine 10 MG Oral Capsule 09/19/2016 Active rivaroxaban 20 MG Oral Tablet rivaroxaban 20 MG Oral Tablet 09/19/2016 Active Social History Social History Additional Details Category Social Info Options Details zzMigrated Social History Migrated Social History Smoking Status:Never smoked tobacco (finding) Plan Of Treatment No Information
--- OUTSIDE RECORDS SUMMARY | 2025-01-26 11:32 | XMS_ITS | Encounter Summary ---
Author Organization [facility] Address [address] [place] [address] Phone Care Team Providers Care Bread Wrapper Name Role Phone Kendrick Borja Primary Care Provider [phone] Encounter Details Date Type Department Care Team (Late st Contact Info) Description 08/28/2019 Orders Only [facility] [address] [place] [address] Chronic kidney disease, stage 3 (moderate) ([facility]) Social History Tobacco Use Types Packs/Day Years Used Date Smoking Tobacco: Never Assessed Comments Unknown Sex and Gender Information Value Date Recorded Sex Assigned at Not on file Legal Sex Female 10:44 AM EDT Gender Identity Not on file Sexual Orientation Not on file documented as of this encounter Plan of Treatment Not on file documented as of this encounter Visit Diagnoses Diagnosis Chronic kidney disease, stage 3 (moderate) documented in this encounter Care Teams Bread Wrapper Relationship Specialty Start Date End Date Kendrick Borja ARNP PCP - General Nurse Practitioner 02/08/21 documented as of this encounter
--- OUTSIDE RECORDS SUMMARY | 2025-01-26 11:32 | XMS_ITS | Encounter Summary ---
Author Organization [facility] Address [address] [place] [address] Care Team Providers Care Sap Analyst Name Role Phone Jonh Kendrick JACOBSON Primary Care Provider [phone] Reason for Referral * Radiology Services (Routine) - Closed Specialty Diagnoses / Procedures Referred By Contac t Referred To Contact Radiology Diagnoses Chronic kidney disease, stage III (moderate) (CMS/HCC) Procedures US RENAL AND BLADDER Gerry Mcclellan MD [facility] [place] [facility] [address] [place] [address] Phone: tel: fax: Referral ID Status Reason Start Date Expiration Date Visits Re quested Visits Authorized [id number] Closed 12/22/2019 01/21/2021 1 1 Encounter Details Date Type Department Care Team (Latest Contact Info) Description 12/22/2019 Ancillary Orders [facility] Centralized Scheduling [address] [place] [address] Gerry Mcclellan MD NO ADDRESS ON FILE Chronic kidney disease, stage III (moderate) (CMS/HCC) Social History Tobacco Use Types Packs/Day Years [...] or suspected to have Coronavirus / COVID-19? No / Unsure 12/25/2019 9:32 AM CDT documented as of this encounter Plan of Treatment Not on file documented as of this encounter Results * US RENAL AND BLADDER (12/25/2019 10:16 AM CDT) Anatomical Region Laterality Modality Abdomen Ultrasound 12/25/2019 10:2 2 AM CDT Impressions 12/25/2019 3:09 PM CDT IMPRESSION: Please see below. Renal Ultrasound: 12/25/2019 10:16 AM REASON FOR EXAM: See Diagnosis. Diagnosis: Chronic kidney disease, stage III (moderate). COMPARISON: None Technique: Real-time hernandez scale images of the kidneys and bladder were performed in transverse and longitudinal projections. Findings: Acoustic windows are somewhat limited due to body habitus. Right Kidney: 9.2 cm in length. The renal parenchymal echogenicity is within normal limits. There is no evidence of mass, hydronephrosis, or calculus. Left Kidney: 9.6 cm in length. The renal parenchymal echogenicity is within normal limits. There is no evidence of mass, hydronephrosis, or calculus. Bladder: Within normal limits. Impression: Normal renal sonogram. Narrative Procedure Note Osmani Barry MD - 12/25/2019 IMPRESSION: Please see below. Renal Ultrasound: 12/25/2019 10:16 AM REASON FOR EXAM: See Diagnosis. Diagnosis: Chronic kidney disease, stage III (moderate). COMPARISON: None Technique: Real-time hernandez scale images of the kidneys and bladder were performed in transverse and longitudinal projections. Findings: Acoustic windows are somewhat limited due to body habitus. Right Kidney: 9.2 cm in length. The renal parenchymal echogenicity is within normal limits. There is no evidence of mass, hydronephrosis, or calculus. Left Kidney: 9.6 cm in length. The renal parenchymal echogenicity is within normal limits. There is no evidence of mass, hydronephrosis, or calculus. Bladder: Within normal limits. Impression: Normal renal sonogram. us Gerry Mcclellan MD US ORDERABLES Final Result documented in this encounter Visit Diagnoses Diagnosis Chronic kidney disease, stage III (moderate) (CMS/HCC) Chronic kidney disease, Stage III (moderate) Chronic kidney disease, stage III (moderate) (CMS/HCC) Chronic kidney disease, Stage III (moderate) documented in this encounter Additional Health Concerns Infection Onset Date Last Indicated Resolved Time R/O COVID-01/24/2020 01/24/2020 01/25/2020 11:5 3 AM CDT COVID-01/24/2020 01/24/2020 02/23/2020 8:09 PM CDT documented as of this encounter Care Teams Sap Analyst Relationship Specialty Start Date End Date Kendrick Borja APRN [address] [place] [phone] PCP - General NURSE PRACTITIONER 05/02/18 documented as of this encounter
--- OUTSIDE RECORDS SUMMARY | 2025-01-26 11:32 | XMS_ITS | Encounter Summary ---
Author Organization [facility] Address [address] [place] [address] Care Team Providers Care Char Filter Tank Tender Name Role Phone Kendrick Borja APRN Primary Care Provider [phone] Encounter Details Date Type Department Care Team (Latest Contact Info) Description 10/08/2019 Ancillary Orders [facility] Centralized Scheduling [address] [facility] [address] [place] [address] Kendrick Borja, KAVON [address] [address] Injury of left lower extremity, initial encounter; Unspecified injury of left lower leg, initial encounter Social History Tobacco Use Types Packs/Day Years [...] as of this encounter Visit Diagnoses Diagnosis Injury of left lower extremity, initial encounter Unspecified injury of left lower leg, initial encounter documented in this encounter Additional Health Concerns Infection Onset Date Last Indicated Resolved Time R/O COVID-19 01/24/2020 01/24/2020 01/25/2020 11:5 3 AM CDT COVID-19 01/24/2020 01/24/2020 02/23/2020 8:09 PM CDT documented as of this encounter Care Teams Char Filter Tank Tender Relationship Specialty Start Date End Date Kendrick Borja, ASSOCIATE AUTOMATION ENGINEER [address] [phone] PCP - General NURSE PRACTITIONER 05/02/18 documented as of this encounter
--- OUTSIDE RECORDS SUMMARY | 2025-01-26 11:32 | XMS_ITS | Encounter Summary ---
Author Organization [facility] Address [address] [place] [address] Care Team Providers Care Surgical Aide Name Role Phone Kendrick Borja CONSTRUCTION PLUMBER Primary Care Provider [phone] Encounter Details Date Type Department Care Team ([facility] st Contact Info) Description 08/07/2020 Ancillary Orders [facility] [address] [place] [address] Kendrick Borja, CONSTRUCTION PLUMBER [address] [phone] Strain of unspecified muscle(s) and tendon(s) at lower leg level, right leg, initial encounter Social History Tobacco Use [...] as of this encounter Results * XR KNEES AP BILAT STANDING (08/07/2020 12:52 PM CDT) Anatomical Region Laterality Modality Lower Extremity Computed Radiogr aphy 08/07/2020 12:5 2 PM CDT Impressions 08/07/2020 2:09 PM CDT IMPRESSION: See below. Exam: XR KNEES AP BILAT STANDING Date/Time of Exam: 08/07/2020 12:52 PM Reason For Exam: See Diagnosis. Diagnosis: Strain of unspecified muscle(s) and tendon(s) at lower leg level, right leg, initial encounter. Prior: 05/18/2017 Findings: No acute fracture or dislocation. No focal soft tissue abnormality. No significant degenerative findings. Narrative Procedure Note Carlton Zamora, - 08/07/2020 IMPRESSION: See below. Exam: XR KNEES AP BILAT STANDING Date/Time of Exam: 08/07/2020 12:52 PM Reason For Exam: See Diagnosis. Diagnosis: Strain of unspecified muscle(s) and tendon(s) at lower leg level, right leg, initial encounter. Prior: 05/18/2017 Findings: No acute fracture or dislocation. No focal soft tissue abnormality. No significant degenerative findings. Kendrick Borja APRN DIAGNOSTIC IMAGING ORDERABLES Fi nal Result documented in this encounter Visit Diagnoses Diagnosis Strain of unspecified muscle(s) and tendon(s) at lower leg level, right leg, initial encounter Strain of unspecified muscle(s) and tendon(s) at lower leg level, right leg, initial encounter documented in this encounter Care Teams Surgical Aide Relationship Specialty Start Date End Date Kendrick Borja, CONSTRUCTION PLUMBER [facility] [address] [phone] PCP - General NURSE PRACTITIONER 05/02/18 documented as of this encounter
--- OUTSIDE RECORDS SUMMARY | 2025-01-26 11:32 | XMS_ITS | Clinical Summary ---
Author Organization [facility] Address [address] [place] [address] Phone Care Team Providers Care Sheet Taker Name Role Phone Kendrick Borja APRN Primary Care Provider [phone] Allergies Active Allergy Reactions Criticality Noted Date Comments Clindamycin Hcl Hives High 05/22/2017 Medications montelukast (SINGULAIR) 10 mg tablet Take 10 mg by mouth daily at bedtime. Active Breo Ellipta 100-25 mcg/dose Disk with Device INHALE 1 PUFF BY MOUTH ONCE DAILY 01/09/20 20 Active venlafaxine (EFFEXOR XR) 150 mg Extended Release 24 hour capsule Take 150 mg by mouth. Active folic acid (FOLVITE) 1 mg tablet Take 2 mg by mouth. Active rivaroxaban (XARELTO) 20 mg Tablet Take 1 Tablet (20 mg) by mouth daily with supper. 30 Tablet 02/02/20 20 Active SUMAtriptan (Imitrex) 50 mg tablet Take 1 Tablet (50 mg) by mouth see administration instructions. may repeat in 2 hours; max dose 100mg in 24 hours 12 Tablet 6 02/16/20 20 Active OXcarbazepine (TRILEPTAL) 600 mg tabletIndicatio ns:Post traumatic seizure disorder (CMS/HCC) Take 1 Tablet (600 mg) by mouth 2 times daily. 180 Tablet 3 05/25/19 21 Active gabapentin (NEURONTIN) 100 mg capsuleIndicati ons:Intractable migraine without aura and without status migrainosus Take 1 Capsule (100 mg) by mouth 2 times daily. 60 Capsule 11 10/14/19 21 Active Active Problems Problem Noted Date Diagnosed Date Acute hypoxemic respiratory failure 01/28/2020 Acute respiratory distress s yndrome (ARDS) due to severe acute respiratory syndrome coronavirus 2 (SARS-CoV-2) 01/28/2020 Pneumonia due to COVID-19 virus 01/28/2020 Community acquired pneumonia of right middle lob e of lung 01/28/2020 Acute respiratory failure with hypoxia 0 Pneumonia due to COVID-19 virus 01/26/2020 Chronic deep vein thrombosis (DVT) of femoral vein of left lower extremity 01/25/2020 Morbid obesity with BMI of 50.0-59.9, adult 01/12 Hypokalemia 01/25/2020 Post traumatic seizure disorder 05/22/2017 Intractable migraine without aura and without status migrainosus 05/22/2017 Resolved Problems Problem Noted Date Diagnosed Date Resolved Date Pneumonia due to infectious organism 01/25/2020 01/26/2020 Suspected COVID-19 virus infection 01/25/2020 01/26/2020 Social History Tobacco Use Types Packs/Day Years Used Date Smoking Tobacco: Never Smokeless Tobacco: Never Tobacco Cessation:Counseling Given: No Alcohol Use Standard Drinks/Week Comments No 0 (1 standard drink = 0.6 oz pur e alcohol) Comments No Sex and Gender Information Value Date Recorded Sex Assigned at Not on file Legal Sex Female 7:29 AM CDT Gender Identity Not on file Sexual Orientation Not on file Last Filed Vital Signs Vital Sign Reading Time Taken Comments Blood Pressure 151/86 05/25/2020 9:50 AM BALLISTICIAN Pulse 120 05/25/2020 9:50 AM BALLISTICIAN Temperature 35.8 C (96.4 F) 05/25/2020 9:50 AM BALLISTICIAN Respiratory Rate 20 05/25/2020 9:50 AM BALLISTICIAN Oxygen Saturation 96% 05/25/2020 9:50 AM BALLISTICIAN Inhaled Oxygen Concentration - - Weight 157.4 kg (347 lb) 05/25/2020 9:50 AM BALLISTICIAN Height 157.5 cm (5' 2 ) 05/25/2020 9:50 AM BALLISTICIAN Body Mass Index 63.47 05/25/2020 9:50 AM BALLISTICIAN Plan of Treatment Health Maintenance Due Date Last Done Comments Pre-Diabetes and Diabetes Screening 1985 DTAP/TDAP/TD VACCINES (1 - Tdap) 01/16/2004 HEPATITIS B VACCINES (1 of 3 - 19+ 3-dose series) 08/2003 HPV/Cotest (21-29) 2006 HPV VACCINES (1 - 3-dose SCDM series) 01/16/2012 HPV/Cotest (30-65) 2015 CERVICAL CANCER SCREENING 11/27/2021 PAP SMEAR 11/27/2021 11/27/2018 INFLUENZA VACCINE (#1) 2024 BREAST CANCER SCREENING 2025 Insurance [place] [address] [place] [address] Advance Directives For more information, please contact: [phone] * Full Code (Latest Code Status on File) Date Activated Date Inactivated Comments 01/28/2020 4:19 PM 02/02/2020 6:36 PM * Full Code Date Activated Date Inactivated Comments 01/25/2020 4:07 PM 01/28/2020 3:30 PM Care Teams Sheet Taker Relationship Specialty Start Date End Date Kendrick Borja APRN [address] [phone] PCP - General NURSE PRACTITIONER 05/02/18
--- OUTSIDE RECORDS SUMMARY | 2025-01-26 11:32 | XMS_ITS | Encounter Summary ---
Author Organization [facility] Address [address] [place] [address] Care Team Providers Care Machine Egg Washer Name Role Phone Kendrick Borja APRN Primary Care Provider [phone] Encounter Details Date Type Department Care Team (Late st Contact Info) Description 02/02/2020 Chart Note [address] [address] Oksana Ash MD [address] [facility] [place] [address] Social History Tobacco Use Types Packs/Day Years [...] have Coronavirus / COVID-19? No / Unsure 01/24/2020 3:07 PM CDT documented as of this encounter Plan of Treatment Not on file documented as of this encounter Visit Diagnoses Not on filedocumented in this encounter Additional Health Concerns Infection Onset Date Last Indicated Resolved Time COVID-19 01/24/2020 01/24/2020 02/23/2020 8:09 PM CDT documented as of this encounter Care Teams Machine Egg Washer Relationship Specialty Start Date End Date Kendrick Borja APRN [address] [phone] PCP - General NURSE PRACTITIONER 05/02/18 documented as of this encounter
--- NOTE | 2025-01-26 13:25 | XRR_ITS ---
PROCEDURE INFORMATION: Exam: XR Left Foot Exam date and time: 01/26/2025 1:35 PM Age: 40 years old Clinical indication: Injury or trauma; Fall; Blunt trauma; Foot; Left; Additional info: Fall, L foot pain base of little toe TECHNIQUE: Imaging protocol: Radiologic exam of the left foot. Views: 3 or more views. COMPARISON: CR XR foot LT min 3V* [id number] 03/14/2022 2:44 PM FINDINGS: Bones/joints: There is an acute fracture of the mid to distal 5th metatarsal which is oblique. Displacement of up to 3 mm. Prominent plantar calcaneal bone spur. Soft tissues: Normal. XR/XR foot LT min 3V* [id number] IMPRESSION: Acute 5th metatarsal fracture.
--- NOTE | 2025-01-26 14:19 | ED_ITS ---
HPI - Wound/Laceration General: Chief Complaint: Wound/Laceration Stated Complaint: LT calf cut by plastic after a fall Time Seen by Provider: 01/26/25 12:56 History of Present Illness: 40-year-old female with past medical his tory significant for morbid obesity, bilateral leg swelling, peripheral venous insufficiency, CKD, hyperlipidemia, hypertension, presenting to the emergency department with a mechanical fall that occurred due to tripping over her feet earlier today, sustained pain to the outside aspect of the foot as well as a laceration to the left lateral calf. No head trauma, no dizziness no chest pain, able to ambulate but with pain after the fall. Related Data Home Medications ?Medication ?Instructions ?Recorded ?Confirmed acetaminophen 325 mg tablet 325 mg PO QID PRN Pain 07/3101/23/25 (Tylenol) gabapentin 100 mg capsule mg PO 10/17/24 01/23/25 oxcarbazepine 600 mg tablet mg PO 10/17/24 01/23/25 (Trileptal) sumatriptan succinate 50 mg tablet mg PO 10/17/2401/12 Previous Rx's ?Medication ?Instructions ?Recorded nebulizer accessories #1 ea 08/17/21 nystatin 100,000 unit/gram topical 1 applic topical BI D #30 grams 09/22/21 cream afo custom brace and shoes #2 ea 02/08/22 shoes #2 ea 02/08/22 left ankle brace #1 ea 02/16/22 cholecalciferol (vitamin D3) 1,250 50,000 unit PO .wee kly #12 tabs 09/26/22 mcg (50,000 unit) tablet lactulose 10 gram/15 mL oral 10 g (15 mL) PO DAILY PRN 09/26/22 solution constipation #473 mL bumetanide 2 mg tablet 2 mg PO DAILY #90 tabs 11/16 diclofenac sodium 1 % topical gel 2 g topical QID #100 grams 11/27/22 (Voltaren Arthritis Pain) montelukast 10 mg tablet See Rx Instructions .Route 1 05/21/23 .COMPLEX #90 tabs albuterol sulfate 0.63 mg/3 mL See Rx Instructions .Ro cheesh-na 04/29/24 solution for nebulization .COMPLEX #150 mL medroxyprogesterone 150 mg/mL 150 mg IM .q 3 months #1 mL 05/28/24 intramuscular suspension diclofenac sodium 1 % topical gel 2 g topical QID #100 grams 07/16/24 (Voltaren Arthritis Pain) azelastine 137 mcg (0.1 %) nasal See Rx Instructions . Route 08/27/24 spray .COMPLEX #30 mL Breo Ellipta 100 mcg-25 mcg/dose See Rx Instructions . Route 08/29/24 powder for inhalation (fluticasone .COMPLEX #60 ea furoate-vilanterol) lisinopril 2.5 mg tablet 2.5 mg PO DAILY #90 tabs simvastatin 20 mg tablet See Rx Instructions .Route 0 11/25/24 .COMPLEX #180 tabs Ventolin HFA 90 mcg/actuation See Rx Instructions .Rou te 12/01/24 aerosol inhaler (albuterol sulfate) .COMPLEX #18 grams rivaroxaban 20 mg tablet (Xarelto) See Rx Instructions .Route 12/12/24 .COMPLEX #30 tabs cetirizine 10 mg tablet See Rx Instructions .Route 0 12/17/24 .COMPLEX #30 tabs folic acid 1 mg tablet See Rx Instructions .Route 0 12/17/24 .COMPLEX #60 tabs hydroxyzine HCl 25 mg tablet See Rx Instructions .Rout e 12/17/24 .COMPLEX #60 tabs cephalexin 500 mg capsule 500 mg PO BID 7 days #14 cap s 12/18/24 ciprofloxacin 0.3 %-dexamethasone 4 drp otic (ear) BID 7 days #7.5 mL 12/18/24 0.1 % ear drops,suspension azithromycin 250 mg tablet See Rx Instructions PO .COM PLEX #6 01/08/25 tabs triamcinolone acetonide 0.1 % See Rx Instructions .Rou te 01/14/25 topical cream .COMPLEX #80 grams oxycodone-acetaminophen 5 mg-325 1 tab PO Q6H PRN pain #12 tabs 01/26/25 mg tablet (Percocet) Allergies Allergy/AdvReac Type Severity Reaction Status Date / Time clindamycin Allergy ALGY-Rash Verified 01/08/25 11:07 ibuprofen Allergy contraindicated Verified 01/08/25 11:07 with her seizure medication [facility] ED PFS: Medical History Recurrent acute suppurative otitis media without spontaneous rupture of tympanic membrane of both sides Acute cystitis without hematuria Otitis externa, left Environmental and seasonal allergies Morbid obesity with body mass index (BMI) of 60.0 to 69.9 in adult Adult BMI 60.0-69.9 kg/sq m Obesity, morbid, BMI 50 or higher Morbidly obese Callus of foot Distal radial fracture Depo-Provera contraceptive status Bone spur Pap smear of cervix declined because of other reasons Anxiety Encounter for prescription for depo-Provera Upper respiratory tract infection, unspecified type Left wrist sprain History of fall Hemoglobin A1c less than 7.0% Influenza vaccine needed Injury of left lower leg Dog bite of right thigh Abnormal ear exam Otitis media, right Medication management Breast mass, right Scalp mass Rib pain on left side Cellulitis of scalp Adult BMI 50.0-59.9 kg/sq m Strain of right knee Anxiety Viral URI Dermatitis Back pain Cellulitis Venous reflux Mite infestation Anemia Edema Otitis media Mixed hyperlipidemia History of traumatic brain injury Conductive hearing loss in right ear Epilepsy DVT (deep venous thrombosis) Vitamin D deficiency Chronic migraine Depression Surgical History H/O craniotomy Hx of chest tube placement Hx of tracheostomy History of cholecystectomy Family History Father Heart disease Diabetes Hyperlipidemia Prinzmetal angina Family/Other Heart disease Diabetes Hyperlipidemia Mother Diabetes Lung disease COPD & Asthma Hyperlipidemia Social History Smoking and tobacco/nicotine status: never used tobacco/nicotine Alcohol intake: never Substance/Drug Use: never Current occupational status: disabled Current occupation: disabled Do you think of yourself as: Straight/Heterosexual Current gender identity: Female Female Reproductive History: Para: 0 Physical Exam Const: COMMON NORMALS: no acute distress and patient oriented x3 NUTRITIONAL APPEARANCE: obese HENMT: COMMON NORMALS: normocephalic and atraumatic HEAD & SCALP: normocephalic and atraumatic Eye: COMMON NORMALS: Equal, round and reactive pupils present and EOMs intact bilaterally PUPIL: Yes Equal, round and reactive pupils present Neck/C-Spine: COMMON NORMALS: full ROM and supple Chest: COMMONS NORMALS: normal inspection of the chest and normal palpation of entire chest wall Resp: COMMON NORMALS: normal respiratory effort, No retractions, No use of accessory muscles and clear to auscultation bilaterally AUSCULTATION: clear to auscultation bilaterally Cardio: COMMON NORMALS: regular rate, regular rhythm and No murmurs present (Cardio) RATE: regular rate RHYTHM: regular rhythm GI: COMMON NORMALS: Normal to inspection, nondistended, normoactive bowel sounds present, Soft to palpation, non-tender and no masses PALPATION: Yes Soft to palpation Extremity: COMMON NORMALS: full ROM LEFT LOWER EXTREMITY: Yes lower leg Left lower leg: Yes other (Macerated skin tear with 3 cm laceration noted L anterolateral lower leg) and Yes foot & digits Left foot and digits: Yes palpation (Tenderness to palpation to the lateral aspect of the left foot) Neuro: COMMON NORMALS: patient oriented x3, moves all extremities and no focal motor deficits Psych: COMMON NORMALS: mental status grossly normal, Normal thought process present and cooperative THOUGHT PROCESS: Normal thought process present Skin: COMMON NORMALS: no rashes or lesions noted and no wounds GENERAL SKIN EXAM: no rashes or lesions noted Procedures Laceration Laceration 1: Site: lower extremity (Left anterolateral lower leg) Side (If applicable): left Size (cm): 3 Description: irregular Depth: simple, single layer Local Anesthetic: lidocaine 1% and with epi Amount of anesthesia used (mL): 2 Pre-repair: wound explored, irrigated extensively and deep structures intact Skin layer closed with: nylon Size (cm): 4-0 Number of sutures: 6 Technique: simple, interrupted Orthopedic Splinting/Casting Injury #1: Side: left Lower Extremity Injury Location: foot Lower Extremity Immobilizer: posterior splint and stirrup splint Other Orthopedic Equipment: crutches Course Vital Signs: Vital signs: Vital Signs Temperature 98.1 F 01/26/25 11:30 Pulse Rate 84 01/26/25 11:30 Respiratory Rate 16 01/26/25 11:30 Blood Pressure 117/79 01/26/25 11:30 Pulse Oximetry 97 01/26/25 11:30 Oxygen Delivery Me thod Room Air 01/26/25 11:30 MDM - Wound/Laceration Medical Decision Making 40-year-old female history obesity and PVD with chronic lower extremity edema noncompliant with diuretics x 3 months presenting to emergency department with a mechanical fall with sustained laceration to the left lateral sena as well as significant pain to the left lateral foot, x-ray showing oblique spiral fracture with mild displacement of the midshaft of the fifth metatarsal bone, plan for laceration repair see procedure note above, immobilize the foot with posterior and stirrup splint, podiatry follow-up outpatient for evaluation and consideration for need for surgery given type of fracture. I spoke with the ED community development manager who will arrange for the patient to follow-up with podiatry next week, nurse to give discharge instructions the patient including these instructions. I did verbally discussed with the patient the need for surgical follow-up to assess possible need for surgery if not healing well. podiatry appt made for 02/04 @12:45pm Differential Diagnosis Likely laceration (Foot fracture, foot sprain, contusion, no concern ankle sprain, no concern tib-fib fracture, no concern retained foreign body) Lab Data Radiology Impressions Foot X-Ray 01/26/25 13:25 IMPRESSION: Acute 5th metatarsal fracture. All radiology interpretation(s) finalized by discharge ED provider radiology interpretation(s): X-ray left foot showing spiral oblique fracture mild displaced of the left fifth metatarsal Discharge Plan Discharge Patient Disposition: Home Clinical Impression: Laceration, Displaced fracture of fifth metatarsal bone, left foot, initial encounter for closed fracture Condition: Stable Prescriptions: New oxycodone-acetaminophen [Percocet] 5-325 mg tablet 1 tab PO Q6H PRN (Reason: pain) Qty: 12 0RF No Action acetaminophen [Tylenol] 325 mg tablet 325 mg PO QID PRN (Reason: Pain) (DME) nebulizer accessories Kit See Rx Instructions .Route Qty: 1 0RF Rx Instructions: As directed diclofenac sodium [Voltaren Arthritis Pain] 1 % gel 2 g topical QID Qty: 100 0RF Rx Instructions: apply to area of numbness albuterol sulfate 0.63 mg/3 mL solution for nebulization See Rx Instructions .ROUTE .COMPLEX Qty: 150 2RF Dose Instruction: USE 1 VIAL IN NEBULIZER EVERY 6 HOURS NEEDED FOR SHORTNESS OF BREATH AND WHEEZING Rx Instructions: USE 1 VIAL IN NEBULIZER EVERY 6 HOURS NEEDED FOR SHORTNESS OF BREATH AND WHEEZING medroxyprogesterone 150 mg/mL suspension 150 mg IM .q 3 months Qty: 1 3RF sumatriptan succinate 50 mg tablet PO oxcarbazepine [Trileptal] 600 mg tablet PO gabapentin 100 mg capsule PO azithromycin 250 mg tablet See Rx Instructions PO .COMPLEX Qty: 6 0RF Rx Instructions: take 500 mg today (day 1), then 250 mg for 4 days (days 2-5) PO (DME) shoes See Rx Instructions .Route .MEDSUPPLY Qty: 2 0RF Rx Instructions: shoes (DME) afo custom brace and shoes See Rx Instructions .Route .MEDSUPPLY Qty: 2 0RF Rx Instructions: As directed diclofenac sodium [Voltaren Arthritis Pain] 1 % gel 2 g topical QID Qty: 100 0RF Rx Instructions: apply to area of pain ciprofloxacin-dexamethasone 0.3-0.1 % drops,suspension 4 drp otic (ear) BID 7 Days Qty: 7.5 0RF cephalexin 500 mg capsule 500 mg PO BID 7 Days Qty: 14 0RF nystatin 100,000 unit/gram cream 1 applic topical BID Qty: 30 0RF (DME) left ankle brace See Rx Instructions .Route .MEDSUPPLY Qty: 1 0RF Rx Instructions: As directed cholecalciferol (vitamin D3) 1,250 mcg (50,000 unit) tablet 50,000 unit PO .weekly Qty: 12 1RF lactulose 10 gram/15 mL solution 10 g PO DAILY PRN (Reason: constipation) Qty: 473 0RF bumetanide 2 mg tablet 2 mg PO DAILY Qty: 90 1RF montelukast 10 mg tablet See Rx Instructions .ROUTE .COMPLEX Qty: 90 0RF Dose Instruction: Take 1 tablet by mouth once daily Rx Instructions: Take 1 tablet by mouth once daily azelastine 137 mcg (0.1 %) spray,non-aerosol See Rx Instructions .ROUTE .COMPLEX Qty: 30 2RF Dose Instruction: ADMINISTER 2 SPRAYS TWICE DAILY INTO EACH NOSTRIL Rx Instructions: ADMINISTER 2 SPRAYS TWICE DAILY INTO EACH NOSTRIL fluticasone furoate-vilanterol [Breo Ellipta] 100-25 mcg/dose blister with device See Rx Instructions .ROUTE .COMPLEX Qty: 60 5RF Dose Instruction: Inhale 1 puff by mouth once daily Rx Instructions: Inhale 1 puff by mouth once daily lisinopril 2.5 mg tablet 2.5 mg PO DAILY Qty: 90 2RF simvastatin 20 mg tablet See Rx Instructions .ROUTE .COMPLEX Qty: 180 1RF Dose Instruction: Take 1 tablet by mouth once daily Rx Instructions: Take 1 tablet by mouth once daily albuterol sulfate [Ventolin HFA] 90 mcg/actuation HFA aerosol inhaler See Rx Instructions .ROUTE .COMPLEX Qty: 18 5RF Dose Instruction: INHALE 2 PUFFS BY MOUTH EVERY 4 TO 6 HOURS NEEDED Rx Instructions: INHALE 2 PUFFS BY MOUTH EVERY 4 TO 6 HOURS NEEDED Xarelto 20 mg tablet See Rx Instructions .ROUTE .COMPLEX Qty: 30 2RF Dose Instruction: Take 1 tablet by mouth once daily Rx Instructions: Take 1 tablet by mouth once daily folic acid 1 mg tablet See Rx Instructions .ROUTE .COMPLEX Qty: 60 2RF Dose Instruction: Take 1 tablet by mouth twice daily Rx Instructions: Take 1 tablet by mouth twice daily hydroxyzine HCl 25 mg tablet See Rx Instructions .ROUTE .COMPLEX Qty: 60 2RF Dose Instruction: TAKE 1 TABLET BY MOUTH TWICE DAILY NEEDED FOR NAUSEA AND VOMITING Rx Instructions: TAKE 1 TABLET BY MOUTH TWICE DAILY NEEDED FOR NAUSEA AND VOMITING cetirizine 10 mg tablet See Rx Instructions .ROUTE .COMPLEX Qty: 30 2RF Dose Instruction: Take 1 tablet by mouth once daily Rx Instructions: Take 1 tablet by mouth once daily triamcinolone acetonide 0.1 % cream See Rx Instructions .ROUTE .COMPLEX Qty: 80 1RF Dose Instruction: APPLY EXTERNALLY TWICE DAILY Rx Instructions: APPLY EXTERNALLY TWICE DAILY Discharge Orders: Discharge ED (Routine); Ordered 01/26/25 Ordered By: Ravi Nava Referrals: LISA Borja, [employer] [Primary Care Provider, Family Practice] Patient Instructions: Opioid Safety, Pain Management, Patient Portal & Rosa [employer] tructions, Foot Fracture in Adults (ED), Splint Care (ED), Crutch Instructions (ED), Laceration (ED) Print Language: Ukrainian Coding Level of Care Code ED [employer] Operator for Elvie Hicks
[2025-01-26] MEDS: lidocaine-epi 1% 20 mL INJ 5 ML INJECTION (15:14)
[2025-01-26 15:26] VITALS: BP 115/80; PULSE 81; RESP 18; O2SAT 99
== END 2025-01-26 15:36 | disposition home or self-care (01) ==
PROVIDERS: Emergency Provider Student in an Organized Health Care Education/Training Program; PCP Nurse Practitioner Family
DX: S92.352A Displaced fracture of fifth metatarsal bone, left foot, initial encounter for closed fracture (principal); S81.812A Laceration without foreign body, left lower leg, initial encounter; E78.5 Hyperlipidemia, unspecified; I12.9 Hypertensive chronic kidney disease with stage 1 through stage 4 chronic kidney disease, or unspecified chronic kidney disease; N18.9 Chronic kidney disease, unspecified; W01.0XXA Fall on same level from slipping, tripping and stumbling without subsequent striking against object, initial encounter
CPT/HCPCS: 12002; 73630; 99283; E0114; J9999

== ENCOUNTER → 2025-02-02 12:33 | Outpatient (BNVA) | payer MEDICARE, MEDICAID, SELFPAY | PROVIDERS: PCP Nurse Practitioner Family; Visit Provider Podiatrist Foot & Ankle Surgery | DX: S92.355A Nondisplaced fracture of fifth metatarsal bone, left foot, initial encounter for closed fracture (principal); S81.812A Laceration without foreign body, left lower leg, initial encounter; W19.XXXA Unspecified fall, initial encounter | CPT/HCPCS: 28470; 99214 ==

== ENCOUNTER → 2025-02-11 13:36 | Outpatient (BNVA) | payer MEDICARE, MEDICAID, SELFPAY | PROVIDERS: PCP Nurse Practitioner Family; Visit Provider Podiatrist Foot & Ankle Surgery | DX: S92.355A Nondisplaced fracture of fifth metatarsal bone, left foot, initial encounter for closed fracture (principal); S81.812A Laceration without foreign body, left lower leg, initial encounter; X58.XXXA Exposure to other specified factors, initial encounter | CPT/HCPCS: 73630; 99213 ==

== ENCOUNTER → 2025-02-23 10:17 | Outpatient (BNVA) | payer MEDICARE, MEDICAID, SELFPAY | PROVIDERS: PCP Nurse Practitioner Family; Visit Provider Nurse Practitioner Family | DX: I10 Essential (primary) hypertension (principal); I73.9 Peripheral vascular disease, unspecified; J45.909 Unspecified asthma, uncomplicated; N39.0 Urinary tract infection, site not specified | CPT/HCPCS: 80053; 81003; 83880; 85025 ==

== ENCOUNTER → 2025-02-24 13:35 | Outpatient (BNVA) | payer MEDICARE, MEDICAID, SELFPAY | PROVIDERS: PCP Nurse Practitioner Family; Visit Provider Podiatrist Foot & Ankle Surgery | DX: S92.355A Nondisplaced fracture of fifth metatarsal bone, left foot, initial encounter for closed fracture (principal); X58.XXXA Exposure to other specified factors, initial encounter | CPT/HCPCS: 73630; 99213 ==

== ENCOUNTER → 2025-03-12 10:46 | Outpatient (BNVA) | payer MEDICARE, MEDICAID, SELFPAY | PROVIDERS: PCP Nurse Practitioner Family; Visit Provider Podiatrist Foot & Ankle Surgery | DX: S92.355A Nondisplaced fracture of fifth metatarsal bone, left foot, initial encounter for closed fracture (principal); S81.812A Laceration without foreign body, left lower leg, initial encounter; X58.XXXA Exposure to other specified factors, initial encounter | CPT/HCPCS: 73630; 99213 ==

== ENCOUNTER → 2025-03-17 16:33 | Outpatient (BNVA) | payer MEDICARE, MEDICAID, SELFPAY | PROVIDERS: PCP Nurse Practitioner Family; Visit Provider Nurse Practitioner Family | DX: L03.116 Cellulitis of left lower limb (principal) | CPT/HCPCS: 87070; 87075; 87205 ==

== ENCOUNTER 2025-03-19 13:16 | Outpatient (CLI) | payer MEDICARE, MEDICAID, SELFPAY ==
--- NOTE | 2025-03-19 13:40 | MM_ITS ---
WS: [id number] BILATERAL SCREENING DIGITAL TOMOSYNTHESIS MAMMOGRAM WITH CAD HISTORY: Z12.31 - Encounter for screening mammogram for malignant ... COMPARISON: 10/14/2020 Bilateral CC and MLO views with tomosynthesis and synthetic mammography submitted. Computer aided detection analyzed. Breast composition: The breasts are almost entirely fatty. No suspicious masses, microcalcifications or architectural distortion. Benign intramammary calcifications and lymph nodes. MM/MM scr BI tomosynthesis [id number] IMPRESSION: BI-RADS: 2 - Benign. FOLLOW UP: 1 Year Follow-up
== END 2025-03-19 13:17 | disposition home or self-care (01) ==
LOC: RAD 13:17
PROVIDERS: PCP Nurse Practitioner Family; Visit Provider Nurse Practitioner Family
DX: Z12.31 Encounter for screening mammogram for malignant neoplasm of breast (principal); R92.313 Mammographic fatty tissue density, bilateral breasts; R92.1 Mammographic calcification found on diagnostic imaging of breast; R59.0 Localized enlarged lymph nodes
CPT/HCPCS: 77063; 77067

== ENCOUNTER → 2025-04-06 12:55 | Outpatient (BNVA) | payer MEDICARE, MEDICAID, SELFPAY | PROVIDERS: PCP Nurse Practitioner Family; Visit Provider Thoracic Surgery (Cardiothoracic Vascular Surgery) | DX: S81.802A Unspecified open wound, left lower leg, initial encounter (principal); W22.8XXA Striking against or struck by other objects, initial encounter | CPT/HCPCS: 11042 ==

== ENCOUNTER → 2025-04-15 12:58 | Outpatient (BNVA) | payer MEDICARE, MEDICAID, SELFPAY | PROVIDERS: PCP Nurse Practitioner Family; Visit Provider Podiatrist Foot & Ankle Surgery | DX: S92.355A Nondisplaced fracture of fifth metatarsal bone, left foot, initial encounter for closed fracture (principal); S81.812A Laceration without foreign body, left lower leg, initial encounter; S81.802A Unspecified open wound, left lower leg, initial encounter; X58.XXXA Exposure to other specified factors, initial encounter; I96 Gangrene, not elsewhere classified; L97.822 Non-pressure chronic ulcer of other part of left lower leg with fat layer exposed | CPT/HCPCS: 11042; 73630; 99213; A6219 ==

== ENCOUNTER → 2025-04-20 12:47 | Outpatient (BNVA) | payer MEDICARE, MEDICAID, SELFPAY | PROVIDERS: PCP Nurse Practitioner Family; Visit Provider Thoracic Surgery (Cardiothoracic Vascular Surgery) | DX: I96 Gangrene, not elsewhere classified (principal); S81.802D Unspecified open wound, left lower leg, subsequent encounter; W19.XXXD Unspecified fall, subsequent encounter | CPT/HCPCS: 11042; 11102; 99204 ==

== ENCOUNTER → 2025-05-01 08:32 | Outpatient (BNVA) | payer MEDICARE, MEDICAID, SELFPAY | PROVIDERS: PCP Nurse Practitioner Family; Visit Provider Thoracic Surgery (Cardiothoracic Vascular Surgery) | DX: I96 Gangrene, not elsewhere classified (principal); L97.821 Non-pressure chronic ulcer of other part of left lower leg limited to breakdown of skin; L92.0 Granuloma annulare; L40.4 Guttate psoriasis | CPT/HCPCS: 97597; 99213; A6212 ==